=== PATIENT | male | born 1940 | race Caucasian/White ===

== ENCOUNTER 2016-07-22 11:30 | Inpatient (IN) ==
[2016-07-22] MEDS ORDERED: 0.9 % Sodium Chloride 1,000 ML IVC ONE (11:49)
[2016-07-22 12:09] LABS: Basophils # 0.1 K/mcL (0.0-0.2); Eosinophils # 0.2 K/mcL (0.0-0.6); Eosinophils % 2.8 %; Hematocrit 39.2 % (37.5-50.1); Hemoglobin 13.2 g/dL (12.9-16.9); Immature Granulocytes % 0.3 % (0-4); Lymphocytes # 2.7 K/mcL (0.6-4.6); Lymphocytes % 43.7 %; Mean Corpuscular HGB Conc 33.7 g/dL (31.6-35.5); Mean Corpuscular Hemoglobin 30.1 pg (28.0-33.3); Mean Corpuscular Volume 89.5 fL (83.0-100.0); Mean Platelet Volume 10.4 fL (9.4-12.4); Monocytes # 0.6 K/mcL (0.0-1.3); Neutrophils # 2.6 K/mcL (1.6-8.9); Platelet Count 168 K/mcL (140-400); Red Blood Count 4.38 M/mcL (4.19-5.50); Red Cell Distribution Width 12.8 % (11.5-14.5); Segmented Neutrophils % 42.2 %
[2016-07-22 12:14] LABS: Prothrombin Time 11.1 Seconds (9.4-12.1)
--- NOTE | 2016-07-22 12:14 | Emergency Department Note ---
START Narrative - START START: I examined this patient and my medical decision-making was reviewed with the PNEUMATIC TESTER/PA/Advanced Practice Nurse/Resident Physician. I agree with the documented findings, disposition and treatment plan as described except to the extent set forth below. Patient does have left-sided weakness arm and legs for the last 1 week and slurred speech which is minimal and this began yesterday. Denies any pain in the head or chest or abdomen or back. Does have some chronic neck pain but nothing new. Patient will be further evaluated for CVA. I did see the patient bedside and spoke with them 1214 I did review the patient's EKG showing normal sinus rhythm with rate of 63 and placed a T-wave inversion in lead aVL. 130
--- NOTE | 2016-07-22 13:00 | Emergency Department Note ---
Disposition Clinical Impression: Cerebrovascular accident Qualifiers: CVA mechanism: unspecified Qualified Code(s): I63.9 - Cerebral infarction, unspecified Disposition: Admitted As Inpatient Condition: Fair Time of Disposition: 13:05 Neuro HPI - General Chief Complaint: ED Neuro Symptoms/Deficit Stated Complaint: Left sideed weakness Time Seen by Provider: 07/22/16 11:35 Source: patient, family - History of Present Illness HPI Narrative: Mr. Lange is a 75 her old male who presents with one-week history of left- sided weakness. Patient states that he awoke this morning and attempted to get out of bed at which point he fell. He does not recall if he hit his head. He was able to right himself. Patient denies any dysphasia. He states that he is having difficulty talking due to having "dry mouth". He denies problems swallowing. Patient states he is unable to lift his left arm. Patient lives at home with his who works for the police force. No other complaints at this time. Onset of Symptoms Date: 07/15/16 - Related Data Home Medications: Home Medications Medication Instructions Recorded Confirmed ALPRAZolam [Xanax 1 MG Tablet] 0.5 - 1 mg PO HS 07/22/16 07/22/16 Duloxetine HCl [Cymbalta] 60 mg PO DAILY 07/22/16 07/22/16 Ergocalciferol (VITAMIN D2) 50,000 unit PO QWEEK 07/22/16 07/22/16 [Vitamin D2] HYDROcodone/Acet 5/325 mg [Bruno 1 tab PO Q6H PRN 07/22/16 07/22/16 5-325 mg] HydrOXYzine Pamoate [Vistaril] 50 mg PO Q6H PRN 07/22/16 07/22/16 Lisinopril [Zestril] 20 mg PO DAILY 07/22/16 07/22/16 Melatonin 5 mg PO HS PRN 07/22/16 07/22/16 Rabeprazole Sodium [Aciphex] 20 mg PO DAILY 07/22/16 07/22/16 cloNIDine HCl [Clonidine HCl] 0.2 mg PO TID 07/22/16 07/22/16 hydrALAZINE [HydrALAZINE] 25 mg PO Q8HR 05/24/17 05/24/17 Allergies/Adverse Reactions: Allergies Allergy/AdvReac Type Severity Reaction Status Date / Time amlodipine [From Norvasc] Allergy See Verified 04/20/16 07:44 Comments carvedilol [From Coreg] AdvReac Agitated Verified 02/14/15 08:26 gabapentin AdvReac Shakiness Verified 02/09/16 19:23 pregabalin [From Lyrica] AdvReac Confusion Verified 04/20/16 07:44 Sulfa (Sulfonamide AdvReac Rash Verified 03/19/16 08:37 Antibiotics) All systems ED: reviewed and negative except as stated. Constitutional: Reports: as per HPI Eyes: Reports: as per HPI ENT ED: Reports: as per HPI Cardiovascular: Reports: as per HPI Respiratory: Reports: as per HPI Gastrointestinal: Reports: as per HPI Genitourinary: Reports: as per HPI Musculoskeletal: Reports: as per HPI Integumentary: Reports: as per HPI Neurological: Reports: as per HPI Psychiatric: Reports: as per HPI Endocrine: Reports: as per HPI Hematological/Lymphatic: Reports: as per HPI Allergic/Immunologic: Reports: as per HPI Past Medical History - Past Medical History Medical history: Reports: arthritis, cancer, hypertension Psychiatric history: Reports: anxiety - Social History Smoking Status: Never smoker Smokeless Tobacco Status: No Alcohol use: Reports: occasionally Drug use: Reports: none Physical Exam - General Limitations: other (Mild dysphagia) General appearance: alert, in no apparent distress - Head Head exam: atraumatic, normocephalic, normal inspection - Eye Eye exam: Present: normal appearance, PERRL, EOMI - ENT ENT exam: normal exam, normal oropharynx, mucous membranes dry - Neck Neck exam: Present: normal inspection, full ROM - Chest Chest inspection: Present: normal inspection, symmetric chest wall rise. Absent : tenderness - Respiratory Respiratory exam: Present: normal lung sounds bilaterally. Absent: respiratory distress, wheezes, stridor - Cardiovascular Cardiovascular exam: Present: regular rate, normal rhythm, +S1, +S2. Absent: systolic murmur, diastolic murmur - Abdominal Exam Abdominal exam: Present: soft, Non-Tender - Extremities Exam Extremities exam: Present: normal inspection. Absent: pedal edema - Neurological Exam Neurological exam: Present: alert, oriented X3, CN II-XII intact, motor sensory deficit, other (Muscle strength left upper extremity 2/5, and left lower extremity 2/5. Right upper and lower extremities muscle strength 5/5. Pronator drift of left arm.). Absent: reflexes normal - Psychiatric Psychiatric exam: Present: normal affect, normal mood - Skin Skin exam: Present: warm, dry, intact Course Vital Signs Temperature 97.9 F 07/22/16 11:34 Pulse Rate 66 07/22/16 11:34 Respiratory Rate 18 07/22/16 11:34 Blood Pressure 164/75 07/22/16 11:34 O2 Sat by Pulse Oximetry 98 07/22/16 11:34 Temperature 97.6 F 07/22/16 14:57 Pulse Rate 65 07/22/16 14:57 Respiratory Rate 16 07/22/16 14:57 Blood Pressure 172/96 07/22/16 14:57 O2 Sat by Pulse Oximetry 99 07/22/16 14:57 Neuro Symptoms/Deficit - MDM Narrative Medical decision making narrative: Patient presents with left-sided weakness for the last 1 week. Given his symptoms, I am concerned for CVA. CT of the head is negative for acute infarct. There is age-appropriate cerebral atrophy with evidence of chronic periventricular small vessel ischemic disease. However, patient had a fall today due to weakness. He is unsafe to be discharged home due to weakness. He will need further workup for the etiology of this CVA. Needs PT OT evaluation. He did pass a swallowing eval. He needs stroke risk reduction. - Lab Data Result diagrams: 07/22/16 11:45 07/22/16 11:45 Lab Results 07/22/16 07/22/16 07/22/16 Range/Units 11:45 11:45 11:45 WBC 6.1 (4.3-11.1) K/mcL RBC 4.38 (4.19-5.50) M/mcL Hgb 13.2 (12.9-16.9) g/dL Hct 39.2 (37.5-50.1) % MCV 89.5 (83.0-100.0) fL MCH 30.1 (28.0-33.3) pg MCHC 33.7 (31.6-35.5) g/dL RDW 12.8 (11.5-14.5) % Plt Count 168 (140-400) K/mcL MPV 10.4 (9.4-12.4) fL Immature Gran % 0.3 (0-4) % Seg Neutrophils % 42.2 % Lymphocytes % 43.7 % Monocytes % 10.0 % Eosinophils % 2.8 % Basophils % 1.0 % Neutrophils # 2.6 (1.6-8.9) K/mcL Lymphocytes # 2.7 (0.6-4.6) K/mcL Monocytes # 0.6 (0.0-1.3) K/mcL Eosinophils # 0.2 (0.0-0.6) K/mcL Basophils # 0.1 (0.0-0.2) K/mcL PT 11.1 (9.4-12.1) Seconds INR 1.0 Sodium 142 (136-145) mEq/L Potassium 4.0 (3.5-4.5) mEq/L Chloride 108 (98-109) mEq/L Carbon Dioxide 27 (19-29) mEq/L BUN 17 (8-26) mg/dL Creatinine 1.57 H (0.72-1.25) mg/dL Est GFR ( Amer) 52 L (> 60) Est GFR (Non-Af Amer) 43 L (> 60) BUN/Creatinine Ratio 11 (6-26) Glucose 104 H (70-99) mg/dL Calculated Osmolality 296 (280-300) Calcium 9.0 (8.6-10.8) mg/dL Troponin I (0-0.03) ng/mL 07/22/16 Range/Units 11:45 WBC (4.3-11.1) K/mcL RBC (4.19-5.50) M/mcL Hgb (12.9-16.9) g/dL Hct (37.5-50.1) % MCV (83.0-100.0) fL MCH (28.0-33.3) pg MCHC (31.6-35.5) g/dL RDW (11.5-14.5) % Plt Count (140-400) K/mcL MPV (9.4-12.4) fL Immature Gran % (0-4) % Seg Neutrophils % % Lymphocytes % % Monocytes % % Eosinophils % % Basophils % % Neutrophils # (1.6-8.9) K/mcL Lymphocytes # (0.6-4.6) K/mcL Monocytes # (0.0-1.3) K/mcL Eosinophils # (0.0-0.6) K/mcL Basophils # (0.0-0.2) K/mcL PT (9.4-12.1) Seconds INR Sodium (136-145) mEq/L Potassium (3.5-4.5) mEq/L Chloride (98-109) mEq/L Carbon Dioxide (19-29) mEq/L BUN (8-26) mg/dL Creatinine (0.72-1.25) mg/dL Est GFR ( Amer) (> 60) Est GFR (Non-Af Amer) (> 60) BUN/Creatinine Ratio (6-26) Glucose (70-99) mg/dL Calculated Osmolality (280-300) Calcium (8.6-10.8) mg/dL Troponin I 0.02 (0-0.03) ng/mL - Radiology Data Radiology results reviewed: Yes I reviewed the patient's radiology results. Chest X-Ray 07/22/16 11:53 IMPRESSION: No acute cardiopulmonary process. D/ / James Rahman MD / James Rahman MD Interpreting Provider: James Rahman MD Head CT 07/22/16 11:57 IMPRESSION: No acute intracranial abnormality. There is age-appropriate cerebral atrophy with evidence of chronic periventricular small vessel ischemic disease. D/ / Matthew Wei MD / Matthew Wei MD Interpreting Provider: Matthew Wei MD Checklist - LKW: 3-4.5 hrs Add. Contraindications Patient/family understanding: The patient/family members have been counseled and understood the risk, benefit , and alternatives of treatment. S.B.Parul - Bacilio Situation: Demographics Background: Presenting Complaint Assessment: Vital Signs, Exam Concerns, Pertinant Lab Results S.B.[email or web address] Report Given to: Dr. Mary Ribera Repor Time: 13:05
[2016-07-22] MEDS ORDERED: Aspirin 81 MG TAB.CHEW PO ONE (13:20)
[2016-07-22] MEDS ORDERED: *HR* HYDROcodone/Acet 5/325 mg TABLET PO ONE (13:27)
--- NOTE | 2016-07-22 14:27 | Event Note ---
Date of Encounter: 07/22/16 Time of Encounter: 14:25 1. Acute CVA with left upper and lower extremity weakness and slurred speech is /dysarthria Order MRI of the brain, carotid ultrasound, echocardiogram Neurochecks, fall precautions Continue aspirin, permissive hypertension, neurology consult Check a lipid panel, start statin 2. Chronic kidney disease stage III, stable 3. Hypertension, stable 4. CAD, continue aspirin Time spent on this admission 40 minutes, admitted for observation H and P to be written by ALLIE Mcnally
[2016-07-22] MEDS ORDERED: Naloxone 0.4 MG/ML INJ IVP PRN (14:49)
[2016-07-22] MEDS ORDERED: Melatonin 3 MG TABLET PO PRN (15:09)
[2016-07-22] MEDS ORDERED: hydrOXYzine pamoate 25 MG CAPSULE PO PRN (15:09)
--- NOTE | 2016-07-22 15:26 | Internal Med History&Physical ---
<DaliPorter Cline - Last Filed: 07/22/16 16:23> Date of Encounter: 07/22/16 Time of Encounter: 14:30 Assessment and Plan (1) Acute CVA (cerebrovascular accident) Current visit: Yes Status: Acute Assess: Mr. Lange presents from the ED with chief complaint of worsening left-sided weakness over the past ten days. Patient reports that his speech became slightly slurred yesterday (07/21/16). Patient reports that this is a new condition and that he has never experienced weakness of extremities before. Plan: NIHSS protocol MRI of head/brain w/o contrast ordered Neurology consult ordered and placed Neuro assessment every 3 hours Dysphagia screening Assess for bleeding Supplemental O2 @ 2L with titration if SpO2 <92% Monitor patient's vital signs and SpO2 status OT consult CT consult Bed rest/falls precautions (2) Anxiety about health Current visit: Yes Status: Acute Assess: Patient presents with anxiety related to his declining health status. The patient states his health has declined over the past 1 1/2 years and became anxious and tearful during assessment. Plan: SW consult ordered for possible counseling PT consult ordered OT consult ordered (3) Chronic kidney disease, stage 3 Current visit: Yes Status: Chronic Assess: Patient presents with history of chronic kidney disease, stage III. Plan: Judicious use of IV fluids Monitor I&O (4) Hypertension Current visit: Yes Status: Chronic Assess: Patient presents with history of hypertension related to chronic kidney disease , stage III. Plan: Continue Lisinopril Continue Hydralazine Lipitor 40 mg daily ordered Qualifiers: Hypertension type: secondary to other renal disorders Qualified Code(s): I15.1 - Hypertension secondary to other renal disorders; N28.89 - Other specified disorders of kidney and ureter (5) CAD (coronary artery disease) Current visit: Yes Status: Chronic Assess: Patient presents with history of CAD Plan: Lipid panel ordered Lipitor 40 mg daily ordered Continue Lisinopril Continue Hydralazine Continue aspirin therapy 325 mg daily Qualifiers: Coronary Disease-Associated Artery/Lesion type: unspecified vessel or lesion type [place] vs. transplanted heart: [place] heart Associated angina: without angina Qualified Code(s): I25.10 - Atherosclerotic heart disease of [place] coronary artery without angina pectoris (6) DVT prophylaxis Current visit: Yes Status: Acute Assess: Patient to receive DVT prophylaxis based on his current complaint of left-sided weakness and possible CVA as well as bed rest status. Plan: Heparin 5,000 units SQ Q8 ordered Internal Medicine - H&P: HPI Chief complaint: Left-sided weakness/CVA Admitted From: Emergency Dept Plans for Post Hospital Care: Home History of present illness: Mr. Lange is a 75 year old male presents from the ED with chief complaint of worsening left-sided weakness over the past ten days. Patient reports that his speech became slightly slurred yesterday (07/21/16). Mr. Lange chose to come to the ED today after he reports that he fell while attempting to get out of bed due to the left-sided weakness. Patient was able to right himself slowly and rise to the bed. Patient has a history of arthritis, skin cancer, and hypertension. He also reports that he broke his neck approximately 15 years ago when he sustained a fall from a high location related to his work. 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 He denies any pain in the head, chest, or abdomen. He also denies any bleeding, dizziness, syncope, headaches, or changes in his vision. He reports a feeling of generalized weakness. The patient reports feelings of anxiety and depression related to his current health status which he states has declined over the past 1 1/2 years. Mr. Lange is to be admitted as observation status with NIHSS protocol, neurological assessments Q3HR, dysphagia screening, EV echocardiogram, an MRI of the head/brain, and heparin 5,000 units SQ Q8. Neurology consult ordered and confirmed. Falls precautions are ordered for this patient and patient is only to be out of bed with assistance. Bed rest ordered. Patient to be monitored closely for signs of neurological decline. Past Med Surg Social Fam HX - Past Medical History Source: patient Medical history: arthritis, cancer (Skin cancer with removal of three cancerous lesions), hypertension Psychiatric history: anxiety, depression - Past Surgical History Surgical History: orthopedic, other (Surgery for broken neck 15 years ago) - Social History Smoking Status: Never smoker Smokeless Tobacco Status: No Alcohol use: occasionally Drug use: none Occupational status: retired Current living situation: Home, With Family Activity Level: Independent ambulation Recent Out of Country Travel Within the Last 8 Weeks: No Exposure or Possible Exposure to Illness During Travel: No - Family History Mother Race: Family Member Ethnicity: Non- Living Status: Cause of : Renal failure Hx Family Genitourinary Disorders: Yes Father Race: Family Member Ethnicity: Non- Living Status: Cause of : Complications r/t EtOH abuse Hx Family GI Disorders: Yes Brother Race: Family Member Ethnicity: Non- Living Status: Cause of : Lung complications r/t tobacco abuse Hx Family Respiratory Disorders: Yes Sister Race: Family Member Ethnicity: Non- Living Status: Cause of : Unknown Internal Medicine - H&P: Meds ALPRAZolam [Xanax 1 MG Tablet] 0.5 - 1 mg PO HS 07/22/16 [History] Duloxetine HCl [Cymbalta] 60 mg PO DAILY 07/22/16 [History] Ergocalciferol (VITAMIN D2) [Vitamin D2] 50,000 unit PO QWEEK 07/22/16 [History] HYDROcodone/Acet 5/325 mg [[place] 5-325 mg] 1 tab PO Q6H PRN 07/22/16 [History] HydrOXYzine Pamoate [Vistaril] 50 mg PO Q6H PRN 07/22/16 [History] Lisinopril [Zestril] 20 mg PO DAILY 07/22/16 [History] Melatonin 5 mg PO HS PRN 07/22/16 [History] Rabeprazole Sodium [Aciphex] 20 mg PO DAILY 07/22/16 [History] cloNIDine HCl [Clonidine HCl] 0.2 mg PO TID 07/22/16 [History] hydrALAZINE [HydrALAZINE] 25 mg PO Q8HR 07/22/16 [History] Allergies amlodipine [From Norvasc] Allergy (Verified 04/20/16 07:44) See Comments swelling carvedilol [From Coreg] Adverse Reaction (Verified 02/14/15 08:26) Agitated gabapentin Adverse Reaction (Verified 02/09/16 19:23) Shakiness pregabalin [From Lyrica] Adverse Reaction (Verified 04/20/16 07:44) Confusion Sulfa (Sulfonamide Antibiotics) Adverse Reaction (Verified 03/19/16 08:37) Rash All Systems PM: A 10-system review of systems was performed and is negative for pertinent findings except as documented above in the HPI. - Constitutional Constitutional: as per HPI, falls, weakness (Generalized with worsening weakness of the left side over the past ten days) - EENT Eyes: no change in vision, no discharge, no pain, no photophobia Ears: no ear discharge, no ear pain, no tinnitus Nose, mouth and throat: no dysphagia, no nasal discharge, no neck pain, no sore throat - Breasts Breasts: as per HPI - Cardiovascular Cardiovascular ROS IM: no chest pain, no diaphoresis, no dyspnea, no lightheadedness, no palpitations, no syncope - Respiratory Respiratory: no cough, no dyspnea, no wheezing, no excessive phlegm production - Gastrointestinal Gastrointestinal: no abdominal pain, no diarrhea, no hematemesis, no hematochezia, no melena, no nausea, no vomiting - Genitourinary Genitourinary ROS male: as per HPI - Musculoskeletal Musculoskeletal ROS IM: as per HPI, arthralgias, back pain, muscle cramps, neck pain - Integumentary Integumentary IM: no rash, no unusual bruising - Neurological Neurological ROS: abnormal speech (Slurred speech which began yesterday ()), weakness (Left-sided) - Psychiatric Psychiatric: as per HPI, anxiety, depression - Endocrine Endocrine IM: as per HPI - Hematologic/Lymphatic Hematologic/Lymphatic: no easy bruising - Allergic/Immunologic Allergic/Immunologic: as per HPI - Constitutional Vitals: Temp Pulse Resp BP Pulse Ox 97.6 F 65 16 172/96 99 07/22/16 14:57 07/22/16 14:57 07/22/16 14:57 07/22/16 14:57 07/22/16 14:57 General appearance: Present: cooperative, mild distress, A&O X 3, obese, answers questions appropriately Exam: Patient became tearful related to changes in his health status over the past year and a half. - Head Head exam: Present: atraumatic, normocephalic - Eye Eye exam: Present: PERRL, conjuntiva pink, sclera anicteric Pupils: Present: PERRL - ENT ENT exam: Present: normal exam, normal external ear exam - Neck Neck exam general surgery: Present: supple, trachea midline. Absent: lymphadenopathy - Respiratory Respiratory exam: Present: CTAB. Absent: accessory muscle use, rales, rhonchi, wheezes - Cardiovascular Cardiovascular exam: Present: RRR, +S1, +S2. Absent: diastolic murmur, gallop, rubs, systolic murmur - GI/Abdominal GI/Abdominal exam: Present: normal bowel sounds, soft, no peritoneal signs. Absent: distended, tenderness - Rectal Rectal exam: Present: deferred - Additional comments: exam deferred. - Extremities Exam Extremities exam: Present: normal capillary refill, normal inspection, warm, radial pulses palpable and symetrical Additional comments: Upon initial neurological examination, patient has slightly diminished strength on the left-sided extremities. No pronator drift present. - Back Exam Back exam: Present: normal inspection - Neurological Exam Neurological exam: Present: CN II-XII intact, oriented X3, no focal deficits, speech deficit (Speech is slightly slurred during assessment and examination). Absent: pronater drift, facial droop - Psychiatric Psychiatric exam: Present: anxious (Patient became tearful during examination related to his declining health status), depressed - Skin Skin exam: Present: dry, intact Internal Med - H&P Results - Labs CBC & Chem 7: 07/22/16 11:45 07/22/16 11:45 - EKG Data EKG shows normal: sinus rhythm - EKG Data Prior EKG available for review: yes When compared to previous EKG: there is no significant change EKG comments: 07/22/16 15:53 EKG dated 02/09/16 shows sinus rhythm with non-specific ST & T-wave abnormality. EKG dated 07/22/16 shows sinus rhythm with first degree AV block and non- specific T-wave abnormality. - Diagnostic Studies Chest x-ray Additional comments: 1-View CXR of chest shows: Low lung volumes with persistent elevation of the left hemidiaphragm. Clear lungs. No findings for pleural effusion or pneumothorax. Normal mediastinal, hilar, and cardiac contours. Partial included changes of anterior cervical spine fusion without obvious complication. No acute fracture. OVERALL IMPRESSION: No acute cardiopulmonary process. CT scan - head Additional comments: CT of head without contrast dated 07/22/16 shows: BRAIN/VENTRICLES: Is no acute intracranial hemorrhage, mass effect, or midline shift. No abnormal extra-axial fluid collection. The harrison-white differentiation is maintained without evidence of acute infarct. There is no evidence of hydrocephalus. There is age-appropriate cerebral atrophy. Faint low density periventricular white matter changes are noted compatible with chronic small vessel ischemic disease. Minor basal ganglia calcifications incidentally noted. ORBITS: The visualized portion of the orbits demonstrate no acute abnormality. SINUSES: The visualized paranasal sinuses and mastoid air cells demonstrate no acute abnormality. SOFT TISSUES/SKULL: No acute abnormality of the visualized skull or soft tissues. OVERALL IMPRESSION: No acute intracranial abnormality. There is age- appropriate cerebral atrophy with evidence of chronic periventricular small vessel ischemic disease. <Yosvany Clifton H - Last Filed: 07/22/16 16:26> Date of Encounter: 07/22/16 Internal Medicine - H&P: HPI History of present illness: Mr. Lange is a 75 year old male All Systems PM: A 10-system review of systems was performed and is negative for pertinent findings except as documented above in the HPI. - Constitutional Vitals: Temp Pulse Resp BP Pulse Ox 97.6 F 65 16 172/96 99 07/22/16 14:57 07/22/16 14:57 07/22/16 14:57 07/22/16 14:57 07/22/16 14:57 Internal Med - H&P Results - Labs CBC & Chem 7: 07/22/16 11:45 07/22/16 11:45 - Attending Attestation 1. Acute CVA with left upper and lower extremity weakness and slurred speech is /dysarthria Order MRI of the brain, carotid ultrasound, echocardiogram Neurochecks, fall precautions Continue aspirin, permissive hypertension, neurology consult Check a lipid panel, start statin 2. Chronic kidney disease stage III, stable 3. Hypertension, stable 4. CAD, continue aspirin Time spent on this admission 40 minutes, admitted for observation I examined this patient and my medical decision-making was reviewed with the TECHNICAL INSTRUCTOR COURSE DEVELOPER/PA/Advanced Practice Nurse/Resident Physician. I agree with the documented findings, disposition and treatment plan as described except to the extent set forth below.
[2016-07-22] MEDS: hydrALAZINE 25 MG TABLET PO SCH (16:03)
[2016-07-22] MEDS: Cholecalciferol (D-3) 1,000 UNIT TABLET PO SCH (16:03)
[2016-07-22] MEDS: cloNIDine HCl 0.1 MG TABLET PO SCH (20:21)
[2016-07-22] MEDS: ALPRAZolam 1 MG TABLET PO SCH (20:21)
[2016-07-22] MEDS: *HR* HYDROcodone/Acet 5/325 mg TABLET PO PRN (20:22)
--- NOTE | 2016-07-22 20:56 | Neurology - Consult Note ---
Date of Encounter: 07/22/16 Time of Encounter: 20:52 Assessment and Plan (1) Acute CVA (cerebrovascular accident) Current Visit: Yes Status: Acute This gentleman has indeed experienced acute right hemispheric cerebral infarcts. The bulk of the injury however sustained in the right centrum semiovale ovale. There are several satellite micro-infarcts surrounding a large lacunar infarction. There is also a tiny lacunar infarction in the left centrum semiovale. Because of the bihemispheric involvement certainly embolic phenomenon is always a question. The MRI also reveals chronic periventricular white matter changes as well as other deep white matter changes consistent with previous lacunar events. I am encouraged however that he does maintain some functional strength of the left upper and left lower extremity. I therefore hopeful that over time with intense rehabilitation therapy he may be able to regain a good bit of strength on the left side. I also discussed the importance of getting immediate attention when some acute change in strength, sensation or other senses occurs. I recommend discontinuing aspirin and starting him on Plavix 75 mg daily. Also check MRA scan of the the neck, as well as echocardiogram. Further recommendations will be made pending the outcome of these tests. Stroke protocol orders should be implemented. Also strict risk factor management is paramount. Continue on with the statins and antihypertensives. The documentation in the history of HPI and plan were at least partially created by [employer] voice recognition technology by Dr. Bryson. Errors in grammar, wording or other phrases may exist. If errors are found after the documentation signed, they will be addressed individually in the addendum section of this document when appropriate. History of Present Illness HPI: Mr. Lange is a 75 year old male who was seen for neurologic consultation secondary to progressive weakness of the left upper and lower extremity along with slurred speech. Apparently the weakness has been progressively worsening over the last 10 days. However his stated that the actual onset of left face and arm and leg difficulty was back on June 27. Apparently he was sitting in a chair when this occurred any simply noticed that he could not raise his left arm properly. He denied any other symptoms associated such as chest pain headache shortness of breath or diplopia. MRI scan of the brain reveals an acute right sided infarct in the centrum semiovale ovale. There seemed to be a cluster of acute microinfarcts as well. There is also a very small lacunar infarct in the left centrum semiovale. This gentleman does have a history of hypertension and hyperlipidemia. However his blood pressure was not particularly elevated at the time of admission. His creatinine is slightly elevated at 1.57 BUNs 17 electrolyte panel was all normal glucose was slightly elevated at 104. CBC with differential was completely normal. Troponins were normal. Coag panel was normal. He denies any history of atrial fibrillation. Past Med Surg Social Fam HX - Past Medical History Medical history: arthritis, cancer, hypertension Psychiatric history: anxiety - Past Surgical History Surgical History: orthopedic, other (Surgery for broken neck 15 years ago) - Social History Smoking Status: Never smoker Smokeless Tobacco Status: No Alcohol use: occasionally Drug use: none - Family History Mother Race: Family Member Ethnicity: Non- Living Status: Cause of : Renal failure Hx Family Genitourinary Disorders: Yes Father Race: Family Member Ethnicity: Non- Living Status: Cause of : Complications r/t EtOH abuse Hx Family GI Disorders: Yes Brother Race: Family Member Ethnicity: Non- Living Status: Cause of : Lung complications r/t tobacco abuse Hx Family Respiratory Disorders: Yes Sister Race: Family Member Ethnicity: Non- Living Status: Cause of : Unknown Medications and Allergies ALPRAZolam [Xanax 1 MG Tablet] 0.5 - 1 mg PO HS 07/22/16 [History] Duloxetine HCl [Cymbalta] 60 mg PO DAILY 07/22/16 [History] Ergocalciferol (VITAMIN D2) [Vitamin D2] 50,000 unit PO QWEEK 07/22/16 [History] HYDROcodone/Acet 5/325 mg [[place] 5-325 mg] 1 tab PO Q6H PRN 07/22/16 [History] HydrOXYzine Pamoate [Vistaril] 50 mg PO Q6H PRN 07/22/16 [History] Lisinopril [Zestril] 20 mg PO DAILY 07/22/16 [History] Melatonin 5 mg PO HS PRN 07/22/16 [History] Rabeprazole Sodium [Aciphex] 20 mg PO DAILY 07/22/16 [History] cloNIDine HCl [Clonidine HCl] 0.2 mg PO TID 07/22/16 [History] hydrALAZINE [HydrALAZINE] 25 mg PO Q8HR 07/22/16 [History] Allergies amlodipine [From Norvasc] Allergy (Verified 04/20/16 07:44) See Comments swelling carvedilol [From Coreg] Adverse Reaction (Verified 02/14/15 08:26) Agitated gabapentin Adverse Reaction (Verified 02/09/16 19:23) Shakiness pregabalin [From Lyrica] Adverse Reaction (Verified 04/20/16 07:44) Confusion Sulfa (Sulfonamide Antibiotics) Adverse Reaction (Verified 03/19/16 08:37) Rash All Systems: A 10-system review of systems was performed and is negative for pertinent findings except as documented above in the HPI. Review of Systems: Review of systems is consistent with a history of present illness and otherwise negative. Physical Examination - Vital Signs Vital Signs: Initial Vital Signs Temp Pulse Resp BP Pulse Ox 97.9 F 66 18 164/75 98 07/22/16 11:34 07/22/16 11:34 07/22/16 11:34 07/22/16 11:34 07/22/16 11:34 - Constitutional General appearance: comfortable - Neurologic Motor examination - right side: 5/5: deltoids, biceps, triceps, wrist flexion, wrist extension, weigh box tender, hip flexors, tibialis Anterior, quadriceps, toe extension (EHL), plantarflexion Motor examination - left side: 2/5: hip flexors (2+ to 3/5), 3/5: deltoids, biceps, triceps, weigh box tender, quadriceps, tibialis Anterior, toe extension (EHL), plantarflexion Detailed sensory examination: other (Left hemihypoesthesia is present) Reflex and gait examination: other (Deep tendon reflexes are diminished in both upper and lower extremities.) Mental Status Examination: awake, alert, oriented to person, oriented to place, oriented to time, follows commands appropriately, answers questions appropriately, no agnosia, no aphasia, no aproxia Cranial nerve examination: PERRL, EOMI, visual alvarado intact, corneal reflexes brisk symmetrically, mastication intact, no dysarthria, hearing is intact symmetrically Cranial Nerve Exam: facial hypesthesia: Left, flattening of masolabic/folds: Left Results - Laboratory Findings CBC and BMP: 07/22/16 11:45 07/22/16 11:45 Abnormal lab findings: Abnormal lab results Creatinine 1.57 mg/dL (0.72-1.25) H 07/22/16 11:45 Est GFR ( Amer) 52 (> 60) L 07/22/16 11:45 Est GFR (Non-Af Amer) 43 (> 60) L 07/22/16 11:45 Glucose 104 mg/dL (70-99) H 07/22/16 11:45 POC Glucose 90 (58-89) H 07/22/16 15:06 Consult Discharge Plan - Plan Referrals: Dio Wilkerson MD [Primary Care Provider] -
[2016-07-22] MEDS: *HR* Heparin 5,000 UNIT/ML VIAL SQ SCH (22:33)
[2016-07-23] MEDS: hydrALAZINE 25 MG TABLET PO SCH ×4 (00:09→23:18)
[2016-07-23] MEDS: *HR* HYDROcodone/Acet 5/325 mg TABLET PO PRN ×3 (04:28→19:58)
[2016-07-23 04:40] LABS: Basophils % 0.7 %; Eosinophils # 0.2 K/mcL (0.0-0.6); Eosinophils % 2.9 %; Hematocrit 38.6 % (37.5-50.1); Hemoglobin 12.7 g/dL (12.9-16.9); Immature Granulocytes % 0.2 % (0-4); Lymphocytes # 2.8 K/mcL (0.6-4.6); Lymphocytes % 47.4 %; Mean Corpuscular HGB Conc 32.9 g/dL (31.6-35.5); Mean Corpuscular Hemoglobin 29.3 pg (28.0-33.3); Mean Corpuscular Volume 89.1 fL (83.0-100.0); Mean Platelet Volume 10.8 fL (9.4-12.4); Monocytes # 0.4 K/mcL (0.0-1.3); Monocytes % 7.5 %; Neutrophils # 2.4 K/mcL (1.6-8.9); Platelet Count 153 K/mcL (140-400); Red Blood Count 4.33 M/mcL (4.19-5.50); Red Cell Distribution Width 12.6 % (11.5-14.5); Segmented Neutrophils % 41.3 %
[2016-07-23] MEDS: *HR* Heparin 5,000 UNIT/ML VIAL SQ SCH ×3 (05:04→21:14)
[2016-07-23 05:38] LABS: Albumin 3.5 g/dL (3.5-5.0); Albumin/Globulin Ratio 1.1 (1.1-2.2); Bilirubin,Total 0.5 mg/dL (0.2-1.2); Calcium 8.9 mg/dL (8.6-10.8); Chol/HDL Ratio 5.7 (0-4.9); Globulin 3.2 g/dL (2.4-3.5); Magnesium 1.8 mg/dL (1.6-2.6); Potassium 3.9 mEq/L (3.5-4.5); Total Protein 6.7 g/dL (6.0-8.3)
--- NOTE | 2016-07-23 07:34 | Neurology Progress Note ---
Date of Encounter: 07/23/16 Time of Encounter: 07:32 Assessment and Plan (1) Acute CVA (cerebrovascular accident) Current Visit: Yes Status: Acute Patient appears to be clinically improving. The MRA scan of the brain was negative. Echocardiogram is pending. Patient continues to reflect upon an incident that occurred about a year ago when he was exerting himself excessively , and he states that he is not felt quite back to baseline over since then. Maintain Plavix. If the echocardiogram is negative I might recommend considering a JB. PT and OT are going to be very important in maximizing his recovery. Maintain statins and better blood pressure control. I will reevaluate him at your request. The documentation in the history of HPI and plan were at least partially created by [employer] recognition technology by Dr. Bryson. Errors in grammar, wording or other phrases may exist. If errors are found after the documentation signed, they will be addressed individually in the addendum section of this document when appropriate. Subjective Interval history: The chart was reviewed, the patient was seen and examined. He had an uneventful night. He feels in fact that is improving strength of the left upper and left lower extremities. MRI scan of the neck was negative. Echocardiogram is pending. Blood pressure mildly elevated however vital signs are otherwise stable. Denies headache denies diplopia. Objective - Constitutional Vitals: Temp Pulse Resp BP Pulse Ox 97.8 F 66 18 158/76 95 07/23/16 04:19 07/23/16 04:19 07/23/16 04:19 07/23/16 04:19 07/23/16 04:19 - Neurological Exam Motor examination - right side: 5/5: deltoids, biceps, triceps, wrist flexion, wrist extension, php website developer, hip flexors, tibialis Anterior, quadriceps, toe extension (EHL), plantarflexion Motor examination - left side: 3/5: hip flexors, php website developer, quadriceps, tibialis Anterior, toe extension (EHL), plantarflexion, 4/5: deltoids, biceps, triceps Sensation intact: Present: other (Left hemihypoesthesia is present) Reflex and gait examination: other (Deep tendon reflexes are diminished in both upper and lower extremities.) Mental Status Examination: Present: awake, alert, oriented to person, oriented to place, oriented to time, follows commands appropriately, answers questions appropriately, no agnosia, no aphasia, no aproxia Cranial nerve examination: Present: PERRL, EOMI, visual alvarado intact, corneal reflexes brisk symmetrically, mastication intact, no dysarthria, hearing is intact symmetrically Cranial Nerve Exam: facial hypesthesia: Left, flattening of masolabic/folds: Left Results - Laboratory Findings CBC and BMP: 07/23/16 03:31 07/23/16 03:31 Abnormal lab findings: Abnormal lab results Hgb 12.7 g/dL (12.9-16.9) L 07/23/16 03:31 Creatinine 1.53 mg/dL (0.72-1.25) H 07/23/16 03:31 Est GFR ( Amer) 54 (> 60) L 07/23/16 03:31 Est GFR (Non-Af Amer) 44 (> 60) L 07/23/16 03:31 Glucose 106 mg/dL (70-99) H 07/23/16 03:31 POC Glucose 90 (58-89) H 07/22/16 15:06 Triglycerides 249 mg/dL (< 150) H 07/23/16 03:31 LDL Cholesterol, Calc 110 mg/dL (0-99) H 07/23/16 03:31 VLDL Cholesterol, Calc 50 mg/dL (< 31) H 07/23/16 03:31 HDL Cholesterol 34 mg/dL (40-59) L 07/23/16 03:31 Cholesterol/HDL Ratio 5.7 (0-4.9) H 07/23/16 03:31 Consult Discharge Plan - Plan Referrals: Dio Wilkerson MD [Primary Care Provider] -
[2016-07-23] MEDS: Lisinopril 20 MG TABLET PO SCH (07:37)
[2016-07-23] MEDS: Cholecalciferol (D-3) 1,000 UNIT TABLET PO SCH (07:37)
[2016-07-23] MEDS: cloNIDine HCl 0.1 MG TABLET PO SCH ×3 (07:38→21:13)
[2016-07-23] MEDS ORDERED: Aspirin Enteric Coated 325 MG Tablet PO SCH (09:00)
--- NOTE | 2016-07-23 10:57 | Electrocardiograph Report ---
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
[2016-07-23] MEDS ORDERED: *HR* Labetalol 20 MG/4 ML SYRINGE IVP PRN (11:42)
--- NOTE | 2016-07-23 13:43 | Internal Med Progress Note ---
Date of Encounter: 07/23/16 Time of Encounter: 12:15 - Assessment and plan (1) Acute CVA (cerebrovascular accident) Current Visit: Yes Status: Acute Assessment and plan: Patient with multiple acute right sided hemispheric cerebral infarcts with satellite microinfarcts. There is also a lacunar left centrum semiovale infarct. Possible embolic stroke. Echocardiogram done today. We will follow results. MRA of the neck did not show any significant abnormalities. Patient has been placed on Plavix. Also has been started on Lipitor. Continue physical therapy. Neurology following. Recommend JB, if TTE is negative for any clot. Telemetry has not shown any abnormal rhythms so far. High risk for complications due to evolving stroke (2) Hypertension Current Visit: Yes Status: Chronic Assessment and plan: Accelerated hypertension with severely elevated blood pressure likely due to acute stroke. We will start patient on intravenous medications to control blood pressure to keep systolic less than 200. We will allow for permissive hypertension due to evolving stroke. Patient has been restarted on his usual antihypertensives. Qualifiers: Hypertension type: secondary to other renal disorders Qualified Code(s): I15.1 - Hypertension secondary to other renal disorders; N28.89 - Other specified disorders of kidney and ureter (3) Chronic kidney disease, stage 3 Current Visit: Yes Status: Chronic Assessment and plan: Renal function remains stable at this time (4) CAD (coronary artery disease) Current Visit: Yes Status: Chronic Assessment and plan: Continue Plavix and statin Qualifiers: Coronary Disease-Associated Artery/Lesion type: unspecified vessel or lesion type [place] vs. transplanted heart: [place] heart Associated angina: without angina Qualified Code(s): I25.10 - Atherosclerotic heart disease of [place] coronary artery without angina pectoris - Subjective Interval history: Patient is feeling better compared to yesterday. Still has weakness on the left upper and lower extremity although this is improving. Denies any headaches. No new complaints at this time. No blurred vision. No chest pain. - Constitutional Vitals: Temp Pulse Resp BP Pulse Ox 97.6 F 93 18 185/80 92 07/23/16 11:21 07/23/16 11:21 07/23/16 11:21 07/23/16 13:37 07/23/16 11:21 General appearance: Present: cooperative, mild distress, A&O X 3, obese, answers questions appropriately - Respiratory Respiratory exam: Present: CTAB. Absent: accessory muscle use, rales, rhonchi, wheezes - Cardiovascular Cardiovascular exam: Present: RRR, +S1, +S2. Absent: diastolic murmur, gallop, rubs, systolic murmur - GI/Abdominal GI/Abdominal exam: Present: normal bowel sounds, soft, no peritoneal signs. Absent: distended, tenderness - Extremities Exam Extremities exam: Present: warm, radial pulses palpable and symetrical. Absent : calf tenderness, cyanotic, pedal edema - Neurological Exam Neurological exam: Present: alert, CN II-XII intact, oriented X3, facial droop ( There is slight left-sided facial droop with flattening of the nasolabial folds) . Absent: speech deficit Additional comments: Normal strength and reflexes on the right side. Strength 3/5 in the left lower extremity and 4 /5 in the left upper extremity - Skin Skin exam: Present: dry, intact Internal Medicine: Result - Labs CBC & Chem 7: 07/23/16 03:31 07/23/16 03:31 Labs: Short CBC 07/23/16 Range/Units 03:31 WBC 5.9 (4.3-11.1) K/mcL Hgb 12.7 L (12.9-16.9) g/dL Hct 38.6 (37.5-50.1) % Plt Count 153 (140-400) K/mcL Neutrophils # 2.4 (1.6-8.9) K/mcL BMP 07/23/16 03:31 Sodium 141 Potassium 3.9 Chloride 107 Carbon Dioxide 24 BUN 17 Creatinine 1.53 H Glucose 106 H Calcium 8.9 Liver Function 07/23/16 Range/Units 03:31 Total Bilirubin 0.5 (0.2-1.2) mg/dL AST 24 (5-34) Units/L ALT 18 (0-55) Units/L Alkaline Phosphatase 51 (38-126) Units/L Albumin 3.5 (3.5-5.0) g/dL - ABG Interpretation ABG results: PT/INR, D-dimer PT 11.1 Seconds (9.4-12.1) 07/22/16 11:45 D-Dimer 415 ng/mLFEU (0-500) 07/22/16 16:09 - Impressions Impressions Brain MRI 05/24/17 15:03 IMPRESSION: Acute microinfarcts within the right frontoparietal lobe and left frontal lobe. The findings were sent to the Radiology Results [facility] at 8:17 pm on 07/22/2016to be communicated to a licensed caregiver. D/ / Olivier More MD / Olivier More MD Interpreting Provider: Olivier More MD Neck MRA 07/22/16 21:06 IMPRESSION: Motion degraded noncontrast exam. No obvious flow limiting stenosis or branch occlusion identified within the neck. D/ / Olivier More MD / Olivier More MD Interpreting Provider: Olivier More MD Consult Discharge Plan - Plan Referrals: Dio Wilkerson MD [Primary Care Provider] - (SENT WEB REQUEST ON 07-23-16 @ [id number] ) - Attending Attestation This document has been at least partially created by [employer] recognition technology by Dr. Day. Errors in grammar, wording or other phrases may exist. If errors are found after the documentation is signed, they will be addressed individually in the addendum section of this document when appropriate.
[2016-07-23] MEDS: ALPRAZolam 1 MG TABLET PO SCH (21:13)
[2016-07-24 04:50] LABS: Hemoglobin A1C 5.9 %
[2016-07-24] MEDS: *HR* Heparin 5,000 UNIT/ML VIAL SQ SCH ×3 (05:20→21:59)
[2016-07-24] MEDS: Cholecalciferol (D-3) 1,000 UNIT TABLET PO SCH (08:36)
[2016-07-24] MEDS: hydrALAZINE 25 MG TABLET PO SCH ×3 (08:36→16:01)
[2016-07-24] MEDS: cloNIDine HCl 0.1 MG TABLET PO SCH ×3 (08:36→21:59)
[2016-07-24] MEDS: Lisinopril 20 MG TABLET PO SCH (08:36)
[2016-07-24] MEDS ORDERED: 0.9 % Sodium Chloride 500 ML IVC ONE (09:01)
[2016-07-24] MEDS ORDERED: Tetracaine/Benzocaine/Butamben 200MG/SPRAY (100SPY/BOT) MM ONE (09:01)
[2016-07-24] MEDS: *HR* Midazolam HCl 5 MG/5 ML VIAL IVP PRN ×2 (09:55→10:00)
[2016-07-24] MEDS: *HR* FentaNYL (PF) 100 MCG/2 ML VIAL IVP PRN ×2 (09:55→10:00)
--- NOTE | 2016-07-24 14:54 | Internal Med Progress Note ---
Date of Encounter: 07/24/16 Time of Encounter: 14:30 - Assessment and plan (1) Acute CVA (cerebrovascular accident) Current Visit: Yes Status: Acute Assessment and plan: JB and TTE did not show any blood clots. No abnormal rhythms. Patient has normal ejection fraction. Continue aspirin and statin. Awaiting physical therapy evaluation to determine the plan of care at the time of discharge. Moderate risk for complications. (2) Hypertension Current Visit: Yes Status: Chronic Assessment and plan: Improved blood pressure. Blood pressure remains elevated. Increase hydralazine to 50 mg by mouth daily. Patient is allergic to amlodipine and carvedilol. Qualifiers: Hypertension type: secondary to other renal disorders Qualified Code(s): I15.1 - Hypertension secondary to other renal disorders; N28.89 - Other specified disorders of kidney and ureter (3) Chronic kidney disease, stage 3 Current Visit: Yes Status: Chronic Assessment and plan: Chronic and stable (4) CAD (coronary artery disease) Current Visit: Yes Status: Chronic Assessment and plan: On aspirin, statin and lisinopril. Qualifiers: Coronary Disease-Associated Artery/Lesion type: unspecified vessel or lesion type [place] vs. transplanted heart: [place] heart Associated angina: without angina Qualified Code(s): I25.10 - Atherosclerotic heart disease of [place] coronary artery without angina pectoris - Subjective Interval history: Is doing much better today. Underwent JB earlier today. Tolerated procedure well. Recovering more strength in his left upper and lower extremities. No complaints at this time. - Constitutional Vitals: Temp Pulse Resp BP Pulse Ox 97.8 F 64 18 151/73 95 07/24/16 11:21 07/24/16 11:21 07/24/16 11:21 07/24/16 11:21 07/24/16 11:21 General appearance: Present: cooperative, A&O X 3, no acute distress, obese, answers questions appropriately - Neck Neck exam general surgery: Present: supple, trachea midline. Absent: lymphadenopathy - GI/Abdominal GI/Abdominal exam: Present: normal bowel sounds, soft, no peritoneal signs. Absent: distended, tenderness - Extremities Exam Extremities exam: Present: warm, radial pulses palpable and symetrical. Absent : calf tenderness, cyanotic, pedal edema - Neurological Exam Neurological exam: Present: CN II-XII intact, oriented X3. Absent: facial droop , speech deficit Additional comments: Improving strength in left upper and lower extremity. Strength 4 over 5 in left upper extremity and 3+ left lower extremity. - Skin Skin exam: Present: dry, intact Internal Medicine: Result - Labs CBC & Chem 7: 07/23/16 03:31 07/23/16 03:31 - ABG Interpretation ABG results: PT/INR, D-dimer PT 11.1 Seconds (9.4-12.1) 07/22/16 11:45 D-Dimer 415 ng/mLFEU (0-500) 07/22/16 16:09 Consult Discharge Plan - Plan Referrals: Dio Wilkerson MD [Primary Care Provider] - 07/30/16 1:20 pm () - Attending Attestation This document has been at least partially created by [employer] recognition technology by Dr. Day. Errors in grammar, wording or other phrases may exist. If errors are found after the documentation is signed, they will be addressed individually in the addendum section of this document when appropriate.
[2016-07-24] MEDS: ALPRAZolam 1 MG TABLET PO SCH (21:58)
[2016-07-24] MEDS: *HR* HYDROcodone/Acet 5/325 mg TABLET PO PRN (22:05)
[2016-07-25] MEDS: hydrALAZINE 25 MG TABLET PO SCH ×2 (00:11→08:04)
[2016-07-25] MEDS: *HR* Heparin 5,000 UNIT/ML VIAL SQ SCH (06:10)
[2016-07-25] MEDS: Lisinopril 20 MG TABLET PO SCH (08:03)
[2016-07-25] MEDS: Cholecalciferol (D-3) 1,000 UNIT TABLET PO SCH (08:04)
[2016-07-25] MEDS: cloNIDine HCl 0.1 MG TABLET PO SCH (08:04)
--- NOTE | 2016-07-25 10:49 | Discharge Summary ---
Date of Encounter: 07/25/16 Time of Encounter: 10:15 - Discharge Diagnosis (1) Acute CVA (cerebrovascular accident) Priority: Primary Status: Acute (2) Hypertension Priority: Secondary Status: Chronic Qualifiers: Hypertension type: secondary to other renal disorders Qualified Code(s): I15.1 - Hypertension secondary to other renal disorders; N28.89 - Other specified disorders of kidney and ureter (3) Chronic kidney disease, stage 3 Priority: Secondary Status: Chronic (4) CAD (coronary artery disease) Priority: Secondary Status: Chronic Qualifiers: Coronary Disease-Associated Artery/Lesion type: unspecified vessel or lesion type [place] vs. transplanted heart: [place] heart Associated angina: without angina Qualified Code(s): I25.10 - Atherosclerotic heart disease of [place] coronary artery without angina pectoris (5) Prediabetes Priority: Secondary Status: Chronic - Discharge Medications Prescriptions: HYDROcodone/Acet 5/325 mg [[place] 5-325 mg] 1 tab PO Q6H PRN #20 tablet PRN Reason: Pain hydrOXYzine pamoate [HydrOXYzine Pamoate] 50 mg PO TID #30 cap Home Medications: ALPRAZolam [Xanax 1 MG Tablet] 0.5 - 1 mg PO HS 07/22/16 [History] Ergocalciferol (VITAMIN D2) [Vitamin D2] 50,000 unit PO QWEEK 07/22/16 [History] Lisinopril [Zestril] 20 mg PO DAILY 07/22/16 [History] Melatonin 5 mg PO HS PRN 07/22/16 [History] Rabeprazole Sodium [Aciphex] 20 mg PO DAILY 07/22/16 [History] cloNIDine HCl [Clonidine HCl] 0.2 mg PO TID 07/22/16 [History] Atorvastatin [Lipitor] 40 mg PO HS tablet 07/25/16 [Rx] Clopidogrel [Plavix] 75 mg PO DAILY #0 tablet 07/25/16 [Rx] HYDROcodone/Acet 5/325 mg [[place] 5-325 mg] 1 tab PO Q6H PRN #20 tablet 07/25/16 [Rx] hydrALAZINE [HydrALAZINE] 50 mg PO Q8HR tablet 07/25/16 [Rx] hydrOXYzine pamoate [HydrOXYzine Pamoate] 50 mg PO TID #30 cap 07/25/16 [Rx] Allergies/Adverse Reactions: Allergies amlodipine [From Norvasc] Allergy (Verified 04/20/16 07:44) See Comments swelling carvedilol [From Coreg] Adverse Reaction (Verified 02/14/15 08:26) Agitated gabapentin Adverse Reaction (Verified 02/09/16 19:23) Shakiness pregabalin [From Lyrica] Adverse Reaction (Verified 04/20/16 07:44) Confusion Sulfa (Sulfonamide Antibiotics) Adverse Reaction (Verified 03/19/16 08:37) Rash Procedures/tests Complete & Pending: Procedures Performed prior 72 hours Category Date Time Status MR angio neck wo con [MR] Routine MRI 07/22/16 21:06 Completed MR head/brain wo con [MR] Routine MRI 07/22/16 15:03 Completed EV JB transesophageal echo Routine Y 07/24/16 07:28 Completed EV echocardiogram Routine Y 07/23/16 07:00 Completed Date of admission: 07/22/16 14:49 Primary care physician: Dio Wilkerson MD Consults: 07/22/16 14:55 Consult to Emanations Analysis Technician [CONS] Routine Reason for SW Consult: Patient is experiencing severe anxiety regarding his health status and may be in need of appropriate counseling 07/22/16 15:04 Consult to Neurology [CONS] Routine Consulting Provider: Neu[facility] Reason for Consult: Patient has been experiencing worsening left-sided weakness in arm and leg over the past ten days Call Completed: Yes - Patient Status Disposition: Transfer SNF Condition: Good Functional capacity at discharge: uses cane/walker Overall status at discharge: patient is progressing back to baseline - Discharge Instructions Instructions: Ischemic Stroke (DC), Chronic Hypertension (DC) Follow Up With: Dio Wilkerson MD [Primary Care Provider] - 07/30/16 1:20 pm () - Diet and Activity Activity: as per physical therapy Diet: diabetic diet, low fat, low cholesterol, low salt diet Hospital course: Mr. Lange is a 75 year old male patient with a history of essential hypertension, coronary artery disease, chronic kidney disease stage III, was admitted here with acute stroke after presenting with left-sided upper and lower extremity weakness. He was not a candidate for planned type thrombolic or due to his presentation greater than 6 hours after onset of symptoms. He was evaluated by neurology and recommended workup for stroke. Patient underwent MRI of the brain which showed acute microinfarcts within the right frontal parietal and left frontal lobe. Given these findings, there was concern for acute embolic stroke. Patient underwent transthoracic and then transesophageal echocardiogram did not show any atrial thrombus. Patient had a normal ejection fraction of 60-65%. Patient was placed on Plavix and statin per neurology recommendations. He also underwent a neck MRA which did not show any flow-limiting stenosis or branch occlusion. The patient was evaluated by physical therapy and recommended placement to inpatient rehabilitation. Patient has been receiving physical therapy during his stay here with improvement in his strength but is still Significantly weak in his left upper and lower extremities. He will be discharged to rehabilitation once he has everything arranged. Clinically he is stable for discharge at this time. - Time Spent with Patient Total time spent providing and/or coordinating discharge services: Greater than 30 minutes (45 min) - Constitutional Vitals: Temp Pulse Resp BP Pulse Ox 98.1 F 63 14 166/80 94 07/25/16 07:43 07/25/16 08:00 07/25/16 08:00 07/25/16 07:43 07/25/16 07:43 General appearance: Present: cooperative, A&O X 3, no acute distress, obese, answers questions appropriately - Respiratory Respiratory exam: Present: CTAB. Absent: accessory muscle use, rales, rhonchi, wheezes - Cardiovascular Cardiovascular exam: Present: RRR, +S1, +S2. Absent: diastolic murmur, gallop, rubs, systolic murmur - GI/Abdominal GI/Abdominal exam: Present: normal bowel sounds, soft, no peritoneal signs. Absent: distended, tenderness - Neurological Exam Neurological exam: Present: alert, oriented X3, no focal deficits. Absent: facial droop, speech deficit - Skin Skin exam: Present: dry, intact - Attending Attestation This document has been at least partially created by [employer] recognition technology by Dr. Day. Errors in grammar, wording or other phrases may exist. If errors are found after the documentation is signed, they will be addressed individually in the addendum section of this document when appropriate.
--- NOTE | 2016-07-25 10:58 | Physician Discharge Referral ---
ExtendedCare Referral Info Provider in Charge after Transfer: PCP Institutional Level of Care: Skilled - Diagnosis (1) Acute CVA (cerebrovascular accident) Priority: Primary Status: Acute (2) Hypertension Priority: Secondary Status: Chronic (3) Chronic kidney disease, stage 3 Priority: Secondary Status: Chronic (4) CAD (coronary artery disease) Priority: Secondary Status: Chronic (5) Prediabetes Priority: Secondary Status: Chronic Prognosis: Good Aware of Diagnosis: Patient Aware of Prognosis: Patient - Transfer Medications Prescriptions: HYDROcodone/Acet 5/325 mg [[place] 5-325 mg] 1 tab PO Q6H PRN #20 tablet PRN Reason: Pain hydrOXYzine pamoate [HydrOXYzine Pamoate] 50 mg PO TID #30 cap Home Medications: ALPRAZolam [Xanax 1 MG Tablet] 0.5 - 1 mg PO HS 07/22/16 [History] Ergocalciferol (VITAMIN D2) [Vitamin D2] 50,000 unit PO QWEEK 07/22/16 [History] Lisinopril [Zestril] 20 mg PO DAILY 07/22/16 [History] Melatonin 5 mg PO HS PRN 07/22/16 [History] Rabeprazole Sodium [Aciphex] 20 mg PO DAILY 07/22/16 [History] cloNIDine HCl [Clonidine HCl] 0.2 mg PO TID 07/22/16 [History] Atorvastatin [Lipitor] 40 mg PO HS tablet 07/25/16 [Rx] Clopidogrel [Plavix] 75 mg PO DAILY #0 tablet 07/25/16 [Rx] HYDROcodone/Acet 5/325 mg [[place] 5-325 mg] 1 tab PO Q6H PRN #20 tablet 07/25/16 [Rx] hydrALAZINE [HydrALAZINE] 50 mg PO Q8HR tablet 07/25/16 [Rx] hydrOXYzine pamoate [HydrOXYzine Pamoate] 50 mg PO TID #30 cap 07/25/16 [Rx] Allergies/Adverse Reactions: Allergies amlodipine [From Norvasc] Allergy (Verified 04/20/16 07:44) See Comments swelling carvedilol [From Coreg] Adverse Reaction (Verified 02/14/15 08:26) Agitated gabapentin Adverse Reaction (Verified 02/09/16 19:23) Shakiness pregabalin [From Lyrica] Adverse Reaction (Verified 04/20/16 07:44) Confusion Sulfa (Sulfonamide Antibiotics) Adverse Reaction (Verified 03/19/16 08:37) Rash - Respiratory Orders Smoking Cessation: Smoking cessation has been advised. For more information, call the [place] Tobacco Quit Line at 9-489-JCKC-NOW. - Ancillary Orders May consult with Dentist, Building Appraiser, Marketing Financial Analyst PRN - Advance Directives Code Status: DNR-Arrest/Don't Intubate - Mobility Orders Ambulate (Per physical therapy) - Rehabiliation Orders Rehab Potential: Fair Rehab Orders: Evaluation for Physical Therapy, Evaluation for Occupational Therapy - Diet Orders Cardiac CERTIFICATION: I certify that the transfer of the above named patient to an Extended Care Facility is necessary for the continuing treatment of the diagnosis listed. The above information is true and accurate reflection of patient's current condition. Confidential - Redisclosure prohibited without a patient's written consent.
[2016-07-25 12:10] VITALS: BP 147/71
[2016-07-25] MEDS: *HR* HYDROcodone/Acet 5/325 mg TABLET PO PRN (13:08)
== END 2016-07-25 13:45 | DRG 66 ==
LOC: 2NNU 11:30 → EMEROO 11:30 → 2NNU 14:57
PROVIDERS: ADMIT Internal Medicine; ATTEND Internal Medicine

== ENCOUNTER 2018-04-01 17:18 | Observation (INO) ==
[2018-04-01] MEDS ORDERED: *HR* OxyCODONE Immed Rel 5 MG TABLET PO STA (17:29)
--- NOTE | 2018-04-01 18:01 | Emergency Department Note ---
Disposition Clinical Impression: Lower extremity weakness Qualifiers: Laterality: bilateral Qualified Code(s): R29.898 - Other symptoms and signs involving the musculoskeletal system Lower extremity pain Qualifiers: Laterality: bilateral Qualified Code(s): M79.604 - Pain in right leg Back pain Qualifiers: Back pain location: low back pain Chronicity: acute Back pain laterality: midline Sciatica presence: with sciatica Sciatica laterality: bilateral sciatica Qualified Code(s): M54.42 - Lumbago with sciatica, left side Lumbar canal stenosis Qualifiers: Neurogenic claudication status: unspecified Qualified Code(s): M48.061 - Spinal stenosis, lumbar region without neurogenic claudication Disposition: Admitted As Inpatient Condition: Fair Forms: ED Satisfaction Letter General Adult HPI - General Stated complaint: back pain Time Seen by Provider: 04/01/18 17:28 Source: patient Mode of arrival: EMS Limitations: no limitations Nursing Notes Reviewed: Yes Vital Signs Reviewed: Yes - History of Present Illness HPI Narrative: Patient is a 77-year-old male with past medical history including CVA, he is on Plavix, hypertension, hyperlipidemia, prior lumbar surgery, no hardware, presenting with chief complaint of progressively worsening bilateral lower extremity weakness and pain. 5 days ago, the patient states he was walking around his kitchen in his socks. He states the floor was slippery and he slipped. 1 foot was going in front of him and the other was going behind him and a split-like position. He states he could not stop himself and fell on the ground he states he hit his butt and lower back on the ground. He also hit his foot. Since then, he complains of constant lower extremity pain bilaterally. He is also complaining of progressively worsening weakness and states he feels like he cannot walk with his walker as well anymore. He complains of inner thigh numbness. He states the pain also goes into his lower back. Denies urinary or bowel inconctinence. He went to [facility]. They obtained imaging of his foot which was negative. CT lumbar spine shows spinal stenosis but no acute fractures however it did not mention anything about herniated disks or expanding masses patient is on Plavix. Concern for the progressive weakness, they sent the patient here for MRI. Pain Scale: 9 - Related Data Home Medications Medication Instructions Recorded Confirmed RX: Ergocalciferol (VITAMIN D2) 50,000 unit PO QWEEK 07/22/16 06/02/17 [Vitamin D2] RX: Lisinopril [Zestril] 20 mg PO DAILY 07/22/16 06/02/17 RX: Melatonin 5 mg PO HS PRN 07/22/16 06/02/17 RX: Rabeprazole Sodium [Aciphex] 20 mg PO DAILY 07/22/16 06/02/17 RX: cloNIDine HCl [Clonidine HCl] 0.2 mg PO TID 07/22/16 06/02/17 Alprazolam [Alprazolam Xr] 1 mg PO 04/01/18 Aspirin [Ecotrin] 325 mg PO 04/01/18 Furosemide [Lasix] 20 mg PO 04/01/18 RX: lamoTRIgine [Lamictal] 04/01/18 Simvastatin [Zocor] 20 mg PO HS 04/01/18 04/01/18 Previous Rx's Medication Instructions Recorded RX: Clopidogrel [Plavix] 75 mg PO DAILY #0 tablet 07/25/16 RX: HYDROcodone/Acet 5/325 mg 1 tab PO Q6H PRN #20 tablet 07/25/16 [[place] 5-325 mg] Allergies Allergy/AdvReac Type Severity Reaction Status Date / Time amlodipine [From Norvasc] Allergy See Verified 04/01/18 14:05 Comments carvedilol [From Coreg] AdvReac Agitated Verified 04/01/18 14:05 gabapentin AdvReac Shakiness Verified 04/01/18 14:05 pregabalin [From Lyrica] AdvReac Confusion Verified 04/01/18 14:05 Sulfa (Sulfonamide AdvReac Rash Verified 04/01/18 14:05 Antibiotics) All systems ED: reviewed and negative except as stated. Review of Systems: As Per HPI Constitutional: Denies: fever, chills Cardiovascular: Denies: chest pain, palpitations Respiratory: Denies: cough, dyspnea Gastrointestinal: Denies: abdominal pain, nausea, vomiting, diarrhea Genitourinary: Denies: dysuria Musculoskeletal: Reports: back pain, other (bilateral leg pain and weakness) Integumentary: Denies: abrasion Past Medical History - Past Medical History Attestation: Yes The following information was validated with the patient. Source: patient Medical history: Reports: CVA, hyperlipidemia, hypertension, renal disease Surgical history: Reports: orthopedic, other Psychiatric history: Reports: anxiety, depression - Social History Smoking Status: Never smoker Smokeless Tobacco Status: No Alcohol use: Reports: none Drug use: Reports: none Physical Exam - General Limitations: no limitations General appearance: alert, in distress (mild) - Head Head exam: atraumatic, normocephalic - Eye Eye exam: Present: normal appearance, PERRL, EOMI - ENT ENT exam: normal exam, normal oropharynx, mucous membranes moist - Neck Neck exam: Present: normal inspection, trachea midline. Absent: tenderness, meningismus - Chest Chest inspection: Present: normal inspection, symmetric chest wall rise - Respiratory Respiratory exam: Present: normal lung sounds bilaterally. Absent: respiratory distress, wheezes - Cardiovascular Cardiovascular exam: Present: regular rate, normal rhythm, normal heart sounds - Abdominal Exam Abdominal exam: Present: soft, Non-Tender. Absent: tenderness, distention, guarding, rebound, rigidity - Extremities Exam Extremities exam: Present: normal inspection, full ROM, normal capillary refill - Back Exam Back exam: Present: other (Midline spinal tenderness and paraspinal tenderness of the lower lumbar spine. Well-healed scar over L2-L5.) - Neurological Exam Neurological exam: Present: alert, oriented X3, CN II-XII intact, other (Decreased sensation bilateral inner thighs) - Expanded Neurological Exam Speech: Present: fluid speech Motor strength - LUE: 5/5 Motor strength - RUE: 5/5 Motor strength - LLE: 4/5 Motor strength - RLE: 4/5 Upper motor neuron exam: janette neglect: Absent bilaterally - Psychiatric Psychiatric exam: Present: normal affect, normal mood - Skin Skin exam: Present: warm, dry, intact Course Vital Signs Temperature 97.9 F 04/01/18 17:30 Pulse Rate 58 04/01/18 17:30 Respiratory Rate 16 04/01/18 17:30 Blood Pressure 184/92 04/01/18 17:30 O2 Sat by Pulse Oximetry 100 04/01/18 17:30 Temperature 97.9 F 04/01/18 17:30 Pulse Rate 63 04/01/18 21:23 Respiratory Rate 22 04/01/18 21:23 Blood Pressure 168/122 04/01/18 21:23 O2 Sat by Pulse Oximetry 99 04/01/18 21:23 Oxygen Delivery Oxygen Delivery Room Air Medical Decision Making - [facility] Narrative Medical decision making narrative: Patient history of previous lumbar surgery which he does not remember why and what the surgery was. He has significant tenderness of the L5 region. L>R weakness. He does have bilateral inner thigh numbness. He has weakness of bilateral lower extremity. No upper extremity weakness, slurred speech, facial droop, confusion. Suspect this is secondary to the fall. We will need to rule out herniated disc versus a mass. Doubt epidural abscess as the patient is af ebrile and has no history of IV drug use. He does hobble over to the bed and requires assistance when ambulating. Unable to bear weight secondary to pain on the left leg. We will obtain MRI spine without contrast to further evaluate. We will also give him roxicodone for pain. MRI imaging reviewed at 1900. There is multilevel degenerative disc disease throughout the lumbar spine with multilevel severe narrowing of the canal. L1- L2 has a paracentral and proximal foraminal broad-based protrusion with an annular tear and mild canal narrowing, L2-L3 has mild disc bulging with an annular tear and severe narrowing of the canal, L3-L4 shows diffuse disc bulging with annular tear, left foraminal protrusion with likely inferior migrated extruded disc material likely impinging on the descending left L4 nerve root with severe narrowing of the canal, L4-L5 shows diffuse disc bulging with small broad-based central protrusion with severe narrowing of the canal and left paracentral postop changes, mid L5 level there is synovial cyst at the midline along the posterior aspect of the canal with severe narrowing of the canal, and at L5-S1 there is diffuse disc bulging with annular tear, left paracentral and foraminal protrusion, endplate facet and ligament hypertrophic changes, severe foraminal narrowing. Patient notes improvement in pain. Dr. He, spinal surgery consulted at 19:45. Discussed with patient that we are waiting his recommendations. Patient and his would like to go home however they will wait until I discussed with Dr. He. Discussed with Dr. He at 2039. Recommending admission for observation secondary to weakness and he will evaluate the patient in the morning. Hospitalist has been consult for admission. Patient was given another Roxicodon e for his pain. Discussed with Hospitalist at 21:40. Per his recommendations will obtain CBC, CMP, creatinine kinase, urinalysis to evaluate for other causes of his bilateral lower show many weakness. We will obtain these labs prior to the patient being transferred to the floor. He is otherwise accepted for admission. - Medical Records Medical records reviewed: Yes I reviewed the patient's medical records. - Lab Data Result diagrams: 04/01/18 22:00 04/01/18 22:00 - Radiology Data Radiology results reviewed: Yes I reviewed the patient's radiology results. Lumbar Spine MRI 04/01/18 17:30 IMPRESSION: Multilevel degenerative disc disease throughout the lumbar spine as described. Multilevel severe narrowing of the canal is noted. See above for details of each level. D/ / Moses Wilson / Moses Wilson Interpreting Provider: Moses Wilson Attestation Statement - Attestation Attestation: Resident Attestation: I examined this patient and my medical decision making was reviewed with the Resident Physician. I agree with the documented findings, disposition and treatment plan as described except to the extent set forth below. We independently had [id number] contact with the patient. Patient presenting from outside emergency department for MRI for evaluation of low back pain and associated leg weakness with paresthesias to the inner thigh after the fall where he describes doing the splits. The patient had significant difficulty going from the wheelchair to the bed secondary to decrease strength, mobility, pain in the left leg. Patient does have 44 strength although significantly weak. Describes decreased sensation to the inner thigh but not involving the genital region. MRI ordered. Significant degenerative changes with central canal stenosis. The case was discussed with the resident and orthopedic spine. Patient admitted for further evaluation and management.
[2018-04-01] MEDS ORDERED: *HR* OxyCODONE Immed Rel 5 MG TABLET PO ONE (20:55)
[2018-04-01 22:29] LABS: Basophils # 0.1 K/mcL (0.0-0.2); Basophils % 0.6 %; Eosinophils # 0.2 K/mcL (0.0-0.6); Eosinophils % 2.6 %; Hematocrit 43.3 % (37.5-50.1); Hemoglobin 14.1 g/dL (12.9-16.9); Immature Granulocytes % 0.2 % (0-4); Lymphocytes # 3.4 K/mcL (0.6-4.6); Lymphocytes % 41.4 %; Mean Corpuscular HGB Conc 32.6 g/dL (31.6-35.5); Mean Corpuscular Hemoglobin 29.7 pg (28.0-33.3); Mean Corpuscular Volume 91.4 fL (83.0-100.0); Mean Platelet Volume 11.1 fL (9.4-12.4); Monocytes # 0.7 K/mcL (0.0-1.3); Neutrophils # 3.8 K/mcL (1.6-8.9); Platelet Count 116 K/mcL (140-400); Red Blood Count 4.74 M/mcL (4.19-5.50); Red Cell Distribution Width 12.5 % (11.5-14.5); Segmented Neutrophils % 47.2 %
[2018-04-01 22:49] LABS: Albumin 4.2 g/dL (3.5-5.7); Albumin/Globulin Ratio 1.5 (1.1-2.2); Bilirubin,Total 0.7 mg/dL (0.3-1.0); Calcium 9.4 mg/dL (8.6-10.3); Globulin 2.8 g/dL (2.4-3.5); Potassium 4.1 mEq/L (3.5-5.1)
[2018-04-01] MEDS ORDERED: Naloxone 0.4 MG/ML INJ IVP PRN (23:40)
[2018-04-01] MEDS ORDERED: OXYCODONE Oral CONC 10 MG/0.5 ML ORAL.SYG SL PRN (23:40)
[2018-04-01] MEDS ORDERED: 0.9 % Sodium Chloride 1,000 ML IVC SCH (23:45)
[2018-04-02] MEDS: OXYCODONE Oral CONC 10 MG/0.5 ML ORAL.SYG SL PRN ×4 (01:44→15:29)
[2018-04-02 02:35] LABS: Bilirubin,Urine Negative (Negative); Blood,Urine Negative (Negative); Clarity,Urine Clear (Clear); Color,Urine Yellow (Yellow); Glucose,Urine (UA) Normal (Normal); Ketones,Urine Negative (Negative); Leukocyte Esterase,Urine Trace (Negative); Nitrite,Urine Negative (Negative); PH,Urine 7.5 pH Units (5.0-8.0); Protein,Urine 30 mg/dL (Neg-Trace); Specific Gravity,Urine < 1.005 (1.010-1.025); Urobilinogen,Urine Normal (Normal)
--- NOTE | 2018-04-02 02:51 | Internal Med History&Physical ---
Date of Encounter: 04/02/18 Time of Encounter: 02:51 Internal Medicine - H&P: HPI Chief complaint: Lower extremity weakness History of present illness: Mr. Lange is a 77 year old male with a past medical history of stroke, hypertension, chronic kidney disease, coronary artery disease, hyperlipidemia and prior lumbar surgery who presents to the ED with a chief complaint of progressively worsening bilateral lower extremity weakness and pain. Patient states that 5 days ago he had slipped while ambulating at home with his socks resulting in one leg movement going forward with the ongoing back and the slitlike position followed by a fall onto his buttock and lower back. Since then he has been having constant lower extremity pain more predominantly on the left side involving the left hip left, left knee and left anterior foot. Since then the patient has had more difficulty with ambulation and noted increasing weakness in his left leg. Patient reports that since his stroke he has had left sided residual weakness which has affected his ambulation, though he has been able to get around without a cane. He is currently on Plavix. However now he feels that he cannot ambulate without grabbing onto some sort of a railing. Since then patient has been applying warm compresses and hot water to the area which initially seemed to improve his pain, but now is gotten progressively worse and is unable to bear weight secondary to the pain. Patient denies any numbness or tingling in his extremities. No reports of loss of bowel or bladder control. MRI of the spine was obtained which showed multilevel degenerative disc disease throughout the lumbar spine and multilevel severe narrowing of the canal. After discussion with the ED attending, there was low suspicion for cauda equina syndrome and the patient was brought up for admission. On my assessment patient was sitting up in bed in no acute distress. He did complain of pain in the left hip radiating up to his back, left knee and left foot. Sensation appeared to be intact. However, there was notable discoloration of the left foot appearing purple in color involving the digits. Dorsalis pedis pulse was faintly palpable with a good capillary refill. Patient states that this is new since the fall. Past Med Surg Social Fam HX - Past Medical History Medical history: CVA, hyperlipidemia, hypertension, renal disease Psychiatric history: anxiety, depression - Past Surgical History Surgical History: orthopedic, other Additional surgical history: ,kidney stone, neck and back sx - Social History Smoking Status: Never smoker Smokeless Tobacco Status: No Alcohol use: none Drug use: none - Family History Mother Family Member Ethnicity: Non- Living Status: Cause of : Kidney failure Father Family Member Ethnicity: Non- Living Status: Hx Family GI Disorders: Yes Brother Family Member Ethnicity: Non- Living Status: Hx Family Respiratory Disorders: Yes Sister Family Member Ethnicity: Non- Living Status: Internal Medicine - H&P: Meds Ergocalciferol (VITAMIN D2) [Vitamin D2] 50,000 unit PO QWEEK 07/22/16 [History] Lisinopril [Zestril] 10 mg PO DAILY 07/22/16 [History] Melatonin 5 mg PO HS PRN 07/22/16 [History] Rabeprazole Sodium [Aciphex] 20 mg PO DAILY 07/22/16 [History] cloNIDine HCl [Clonidine HCl] 0.1 mg PO TID 07/22/16 [History] Clopidogrel [Plavix] 75 mg PO DAILY #0 tablet 07/25/16 [Rx] HYDROcodone/Acet 5/325 mg [[place] 5-325 mg] 1 tab PO Q6H PRN #20 tablet 07/25/16 [Rx] Alprazolam [Alprazolam Xr] 1 mg PO HS 04/01/18 [History] Aspirin [Ecotrin] 325 mg PO 3XW 04/01/18 [History] Furosemide [Lasix] 20 mg PO DAILY 04/01/18 [History] Magnesium 325 mg PO HS 04/01/18 [History] Oxygen 2 l IH HS 04/01/18 [History] Sildenafil Citrate [Viagra] 50 mg PO . PRN 04/01/18 [History] Simvastatin [Zocor] 20 mg PO HS 04/01/18 [History] lamoTRIgine [Lamictal] 150 mg PO BID 04/01/18 [History] Allergy/AdvReac Type Severity Reaction Status Date / Time amlodipine [From Norvasc] Allergy See Verified 04/01/18 14:05 Comments carvedilol [From Coreg] AdvReac Agitated Verified 04/01/18 14:05 gabapentin AdvReac Shakiness Verified 04/01/18 14:05 pregabalin [From Lyrica] AdvReac Confusion Verified 04/01/18 14:05 Sulfa (Sulfonamide AdvReac Rash Verified 04/01/18 14:05 Antibiotics) all SSRI's AdvReac Confusion Uncoded 04/01/18 23:24 All Systems PM: A 10-system review of systems was performed and is negative for pertinent findings except as documented above in the HPI. - Constitutional Constitutional: no chills, no fever(s), no night sweats - EENT Eyes: no change in vision, no discharge, no pain, no photophobia Ears: no ear discharge, no ear pain, no tinnitus Nose, mouth and throat: no dysphagia, no nasal discharge, no neck pain, no sore throat - Cardiovascular Cardiovascular ROS IM: no chest pain, no diaphoresis, no dyspnea, no lightheadedness, no palpitations, no syncope - Respiratory Respiratory: no cough, no dyspnea, no wheezing, no excessive phlegm production - Gastrointestinal Gastrointestinal: no abdominal pain, no diarrhea, no hematemesis, no hematochezia, no melena, no nausea, no vomiting - Musculoskeletal Musculoskeletal ROS IM: no numbness, no tingling - Integumentary Integumentary IM: no rash, no unusual bruising - Neurological Neurological ROS: no confusion, no convulsions, no focal weakness, no numbness, no tingling, no tremor(s) - Hematologic/Lymphatic Hematologic/Lymphatic: no easy bruising - Constitutional Vitals: Temp Pulse Resp BP Pulse Ox 97.9 F 87 16 174/86 96 04/01/18 17:30 04/01/18 22:15 04/01/18 22:15 04/02/18 00:58 04/01/18 22:15 Exam: General: Alert and oriented 3 lying in bed in no acute distress Skin:Normal color, no rash, no lesions. HEENT:EOM, pupils equal, round and reactive. Cardiovascular:Normal S1 & S2, no rubs, murmurs or gallops. No JVD. Pulse regular. Lungs: Normal breath sounds, no wheezes or crackles. Abdomen:Soft, non-tender, no rigidity. Extremities:No deformity, no edema; tenderness to palpation of the dorsum of the left foot and ankle. Sensation intact. Muscle strength 3 out of 5 on the left. 4 out of 5 on the right. Left dorsalis pedis pulses weak but present palpation as compared to the right foot. Good capillary refill. Left foot from the ankle down cool to palpation as compared to the right foot. Neurological:Normal cognition and motor skills. Pulses:Carotid and radial pulses normal +2. Rest of the physical exam is non contributory Internal Med - H&P Results - Labs CBC & Chem 7: 04/02/18 06:18 04/02/18 06:18 Labs: Short CBC 04/01/18 Range/Units 22:00 WBC 8.1 (4.3-11.1) K/mcL Hgb 14.1 (12.9-16.9) g/dL Hct 43.3 (37.5-50.1) % Plt Count 116 L (140-400) K/mcL Neutrophils # 3.8 (1.6-8.9) K/mcL BMP 04/01/18 22:00 Sodium 138 Potassium 4.1 Chloride 103 Carbon Dioxide 27 BUN 17 Creatinine 1.48 H Glucose 105 Calcium 9.4 Liver Function 04/01/18 Range/Units 22:00 Total Bilirubin 0.7 (0.3-1.0) mg/dL AST 38 (13-39) Units/L ALT 26 (7-52) Units/L Alkaline Phosphatase 61 (34-104) Units/L Albumin 4.2 (3.5-5.7) g/dL - Impressions ITS Impressions Lumbar Spine MRI 04/01/18 17:30 IMPRESSION: Multilevel degenerative disc disease throughout the lumbar spine as described. Multilevel severe narrowing of the canal is noted. See above for details of each level. D/ / Moses Wilson / Moses Wilson Interpreting Provider: Moses Wilson - Assessment and plan (1) Back pain Current Visit: Yes Status: Acute Assessment and plan: Back Pain s/p fall. MRI of the lumbar spine shows multilevel degenerative disc disease throughout the lumbar spine: See report below. Patient was given oxycodone in the ED which appears to have improved the patient's pain. Case was discussed with Dr. He with orthopedics who will evaluate the patient in the morning. L1-L2: Mild disc bulging is noted diffusely. Right paracentral and proximal foraminal broad-based protrusion is noted. Annular tear is noted. [id number] right foraminal narrowing is noted. Facet and ligament hypertrophic changes are noted. Mild narrowing of the canal is noted L2-L3: Mild disc bulging is noted diffusely with annular tear. Endplate, facet and ligament hypertrophic changes are noted. Mild foraminal narrowing is noted, right greater than left. Moderate to severe narrowing of the canal is noted L3-L4: Diffuse disc bulging is noted with annular tear. Left foraminal protrusion is noted. Moderate left foraminal narrowing is noted. Below the level of the disc, there is intermediate T2 signal seen best on sagittal T2 image 11. This is likely inferiorly migrated extruded disc material. This extends into the left lateral recess likely impinging on the descending left L4 nerve root. Severe narrowing of the canal is noted. Bilateral facet and ligament hypertrophic changes are noted. L4-L5: Diffuse disc bulging is noted with a small broad-based central protrusion. Minimal inferiorly migrated extruded disc material is noted at the midline. Left foraminal disc protrusion is noted with moderate to severe narrowing of the left foramen. Severe narrowing of the canal is noted. Facet and ligament hypertrophic cHanges are noted. There are suggested left paracentral postoperative changes At the mid L5 level, there is a synovial cyst at the midline along the posterior aspect of the canal giving rise to severe narrowing of the canal. L5-S1: Diffuse disc bulging is noted with annular tear. Left paracentral and foraminal protrusion is noted. Moderate to severe left foraminal narrowing is noted. Moderate to severe right foraminal narrowing is noted. Endplate, facet and ligament hypertrophic changes are noted. Severe foraminal narrowing is noted. Heterogeneous signal is noted in the lateral recesses bilaterally. -Consult orthopedics placed -Pain control Qualifiers: Back pain location: low back pain Chronicity: acute Back pain laterality: midline Sciatica presence: with sciatica Sciatica laterality: bilateral sciatica Qualified Code(s): M54.42 - Lumbago with sciatica, left side; M54.41 - Lumbago with sciatica, right side (2) Lower extremity weakness Current Visit: Yes Status: Acute Assessment and plan: Bilateral lower extremity weakness left greater than right status post fall. Patient states that he has residual weakness on his left side after his CVA but states the weakness has gotten worse since the fall. Patient has good muscle strength on the right side however, assessment of his muscle strength in the left leg seems to be impaired by pain elicited with flexion and extension of the hip and knee. Sensation intact. Low suspicion for cauda equina syndrome. Orthopedics to follow in the morning. Qualifiers: Laterality: bilateral Qualified Code(s): R29.898 - Other symptoms and signs involving the musculoskeletal system (3) Discoloration of skin of foot Current Visit: Yes Status: Acute Assessment and plan: Patient has discoloration of the left foot with a purplish appearance of his digits. Patient reports that this is new since the fall. Leg is cool to palpation from the midshin downwards to the foot. No edema noted. Dorsalis pedis pulse is faintly palpable. Unable to palpate the posterior tibialis. Good capillary refill. Sensation intact. No history of peripheral vascular disease. Patient is currently on Plavix. -We will obtain CABRERA -Vascular consult. (4) Lumbar canal stenosis Current Visit: Yes Status: Acute Assessment and plan: See MRI report. -Appreciate orthopedic recommendations. Qualifiers: Neurogenic claudication status: unspecified Qualified Code(s): M48.061 - Spinal stenosis, lumbar region without neurogenic claudication (5) CAD (coronary artery disease) Current Visit: No Status: Chronic Assessment and plan: Stable. Continue with medical management with patient's home medications. Qualifiers: Coronary Disease-Associated Artery/Lesion type: unspecified vessel or lesion type [place] vs. transplanted heart: [place] heart Associated angina: without angina Qualified Code(s): I25.10 - Atherosclerotic heart disease of [place] coronary artery without angina pectoris (6) Chronic kidney disease, stage 3 Current Visit: No Status: Chronic Assessment and plan: Patient's creatinine appears to be at baseline. We will monitor. - Time Spent With Patient Total time spent is greater than 50% in coordination of care (as documented) at patient's floor/unit and/or counseling patient:
[2018-04-02 02:56] LABS: Bacteria,Urine None Seen per hpf (None-Few); Hyaline Casts,Urine None Seen per lpf (None-Few); RBC,Urine 0-3 per hpf (0-3); Squamous Epithelial Cell,Urine Few per lpf (None-Few); WBC,Urine 0-3 per hpf (0-3)
[2018-04-02] MEDS ORDERED: D5% in 0.45% NACL 1,000 ML IVC SCH (03:00)
[2018-04-02] MEDS: cloNIDine HCl 0.1 MG TABLET PO SCH ×3 (04:57→20:16)
[2018-04-02 07:19] LABS: Basophils % 0.4 %; Eosinophils # 0.1 K/mcL (0.0-0.6); Eosinophils % 1.2 %; Hematocrit 43.7 % (37.5-50.1); Hemoglobin 14.6 g/dL (12.9-16.9); Immature Granulocytes % 0.1 % (0-4); Lymphocytes # 1.9 K/mcL (0.6-4.6); Lymphocytes % 26.5 %; Mean Corpuscular HGB Conc 33.4 g/dL (31.6-35.5); Mean Corpuscular Hemoglobin 30.4 pg (28.0-33.3); Mean Corpuscular Volume 90.9 fL (83.0-100.0); Mean Platelet Volume 10.9 fL (9.4-12.4); Monocytes # 0.5 K/mcL (0.0-1.3); Neutrophils # 4.7 K/mcL (1.6-8.9); Platelet Count 120 K/mcL (140-400); Red Blood Count 4.81 M/mcL (4.19-5.50); Red Cell Distribution Width 12.8 % (11.5-14.5); Segmented Neutrophils % 64.8 %
[2018-04-02 07:36] LABS: Calcium 9.4 mg/dL (8.6-10.3)
[2018-04-02] MEDS: lamoTRIgine 100 MG TABLET PO SCH ×2 (08:57→20:16)
[2018-04-02] MEDS ORDERED: cloNIDine HCl 0.1 MG TABLET PO SCH (09:00)
--- NOTE | 2018-04-02 12:15 | Spinal Consult Note ---
Date of Encounter: 04/02/18 Time of Encounter: 12:13 Assessment and Plan (1) Spondylolisthesis at L4-L5 level Current Visit: Yes Status: Chronic On exam he is awake and alert and moderate distress secondary to back and left lower extremity radicular symptoms. Afebrile vital signs stable. His hips move symmetrically. He has no clonus. He has some weakness in the left quadriceps which is 4 minus on a motor scale. He has 4 out of 5 strength in dorsiflexion and plantar flexion of the left foot. The left foot is cool to touch in comparison to the contralateral extremity. He is otherwise neurovascularly intact with regard to his bilateral upper and lower extremities. He has a negative straight leg raise. MRI of the lumbar spine reveals multilevel degenerative changes. There is severe stenosis at L3-4, L4-5 and L5-S1. There is a degenerative thoracic or lumbar scoliosis apparent. There is a grade 1 spondylolisthesis at L4-5. His stenosis at L3-4 and distally is in part due to a disc extrusion with inferior migration at this level. Impression: 1) lumbar stenosis 2) lumbar radiculopathy 3) left leg weakness with gait impairment 4) spondylolisthesis L4-5 5) degenerative scoliosis an adult patient Plan: I had a long discussion with the patient regarding potential immediate surgery versus nonoperative treatments which would include physical therapy and gait and lower extremity strengthening, analgesics with consideration for neuroleptics and short course oral steroids, and outpatient consultation with pain management for lumbar epidural steroid injections. The patient would like to refrain from surgical intervention at this time. He understands the start in-house physical therapy and that he will likely need to be in a rehabilitation facility if his gait mechanics do not improve. We will set up follow-up appo intment with Dr. Zamora in pain management next week if discharged. Patient will follow-up in my office in 6 weeks to evaluate his clinical progress and understands he would be a good candidate for surgical decompression and fusion if he fails nonoperative treatment. (2) Lumbar radiculopathy Current Visit: Yes Status: Chronic (3) Degenerative scoliosis in adult patient Current Visit: Yes Status: Chronic History of Present Illness Chief complaint: Left leg weakness, lumbar radiculopathy HPI: Mr. Lange is a 77 year old male with a past medical history of stroke, hypertension, chronic kidney disease, coronary artery disease, hyperlipidemia and prior lumbar surgery who presents to the ED with a chief complaint of progressively worsening bilateral lower extremity weakness and pain. Patient states that 5 days ago he had slipped while ambulating at home with his socks resulting in one leg movement going forward with the ongoing back and the slitlike position followed by a fall onto his buttock and lower back. Since then he has been having constant lower extremity pain more predominantly on the left side involving the left hip left, left knee and left anterior foot. Since then the patient has had more difficulty with ambulation and noted increasing weakness in his left leg. Patient reports that since his stroke he has had left sided residual weakness which has affected his ambulation, though he has been able to get around without a cane. Secondary to his weakness and left lower extremity radicular symptoms we are asked to see regarding treatment options in light of severe stenosis found on MRI examination. He denies any bowel bladder difficulties. He has a history of lumbar epidural steroid injections with Dr. ted hull years ago which were helpful. He rates his pain is an 8 on a pain scale. Past Med Surg Social Fam HX - Past Medical History Medical history: CVA, hyperlipidemia, hypertension, renal disease Psychiatric history: anxiety, depression - Past Surgical History Surgical History: orthopedic, other Additional surgical history: ,kidney stone, neck and back sx - Social History Smoking Status: Never smoker Smokeless Tobacco Status: No Alcohol use: none Drug use: none - Family History Mother Family Member Ethnicity: Non- Living Status: Cause of : Kidney failure Father Family Member Ethnicity: Non- Living Status: Hx Family GI Disorders: Yes Brother Family Member Ethnicity: Non- Living Status: Hx Family Respiratory Disorders: Yes Sister Family Member Ethnicity: Non- Living Status: Medications and Allergies Ergocalciferol (VITAMIN D2) [Vitamin D2] 50,000 unit PO QWEEK 07/22/16 [History] Lisinopril [Zestril] 10 mg PO DAILY 07/22/16 [History] Melatonin 5 mg PO HS PRN 07/22/16 [History] Rabeprazole Sodium [Aciphex] 20 mg PO DAILY 07/22/16 [History] cloNIDine HCl [Clonidine HCl] 0.1 mg PO TID 07/22/16 [History] Clopidogrel [Plavix] 75 mg PO DAILY #0 tablet 07/25/16 [Rx] HYDROcodone/Acet 5/325 mg [[place] 5-325 mg] 1 tab PO Q6H PRN #20 tablet 07/25/16 [Rx] Alprazolam [Alprazolam Xr] 1 mg PO HS 04/01/18 [History] Aspirin [Ecotrin] 325 mg PO 3XW 04/01/18 [History] Furosemide [Lasix] 20 mg PO DAILY 04/01/18 [History] Magnesium 325 mg PO HS 04/01/18 [History] Oxygen 2 l IH HS 04/01/18 [History] Sildenafil Citrate [Viagra] 50 mg PO . PRN 04/01/18 [History] Simvastatin [Zocor] 20 mg PO HS 04/01/18 [History] lamoTRIgine [Lamictal] 150 mg PO BID 04/01/18 [History] Allergy/AdvReac Type Severity Reaction Status Date / Time amlodipine [From Norvasc] Allergy See Verified 04/01/18 14:05 Comments carvedilol [From Coreg] AdvReac Agitated Verified 04/01/18 14:05 gabapentin AdvReac Shakiness Verified 04/01/18 14:05 pregabalin [From Lyrica] AdvReac Confusion Verified 04/01/18 14:05 Sulfa (Sulfonamide AdvReac Rash Verified 04/01/18 14:05 Antibiotics) all SSRI's AdvReac Confusion Uncoded 04/01/18 23:24 Results - Labs Result Diagrams: 04/02/18 06:18 04/02/18 06:18 Labs: Abnormal lab results Plt Count 120 K/mcL (140-400) L 04/02/18 06:18 Carbon Dioxide 30 mEq/L (23-29) H 04/02/18 06:18 Creatinine 1.49 mg/dL (0.70-1.30) H 04/02/18 06:18 Est GFR ( Amer) 55 (> 60) L 04/02/18 06:18 Est GFR (Non-Af Amer) 46 (> 60) L 04/02/18 06:18 Glucose 153 mg/dL (70-105) H 04/02/18 06:18 POC Glucose 116 mg/dL (70-99) H 04/02/18 09:08 Ur Specific [place] < 1.005 (1.010-1.025) L 04/02/18 02:08 Urine Protein 30 mg/dL (Neg-Trace) H 04/02/18 02:08 Ur Leukocyte Esterase Trace (Negative) H 04/02/18 02:08 Ur Culture Indicated? YES (NO) A 04/02/18 02:08 H & H 04/01/18 04/02/18 Range/Units 22:00 06:18 Hgb 14.1 14.6 (12.9-16.9) g/dL Hct 43.3 43.7 (37.5-50.1) % All other labs normal. Consult Discharge Plan - Plan Referrals: Dio Wilkerson MD [Primary Care Provider] -
--- NOTE | 2018-04-02 12:48 | Event Note ---
Date of Encounter: 04/02/18 Time of Encounter: 11:30 Mr Lange was placed in observation earlier this AM due to intractable back pain with hx of spinal stenosis. He has been evaluated by Dr. Mendez and currently pursuing nonsurgical management. He is to be seen by PT/OT with plans for further reevaluation in the future. Currently he is comfortable at rest Plan: PT/OT Pain control Outpatient follow up with pain management and surgery Agree with other assessment and plan as per H&P
--- NOTE | 2018-04-02 15:03 | Vascular/Endovasc Consult Note ---
Date of Encounter: 04/02/18 Time of Encounter: 15:01 Assessment and Plan (1) Left leg pain Current Visit: Yes Status: Acute The patient is a 77-year-old white male who presents was left hip knee and ankle pain. The patient has spondylolisthesis as well as spinal stenosis. He has difficulties elevating his left leg. The patient has palpable femoral popliteal dorsalis pedis and posterior tibial pulses bilaterally. His feet are warm and well perfused. He has no evidence of arterial vascular insufficiency. There is no need for any further assessment at this stage. I will recommend an orthopedic consultation. - History of Present Illness Consult date: 04/02/18 Chief complaint: Left leg pain. History of present illness: Mr. Lange is a 77 year old male seen at the request of For peripheral vascular disease involving the left lower extremity. The patient is known to have spinal stenosis, spinal spondylolisthesis, compression of his left lower nerve root with weakness involving his left lower extremity. The patient sustained a fall after he slipped in his house. He has been complaining of left leg pain. The patient was found to have no pulses and we were asked to see him to render an opinion in regard to the circulatory status of his left lower extremity. The patient claims that the pain affect his left hip, left knee and left ankle. He denies any pain in his left foot. The patient denied any previous history of claudication. He had no previous surgery on his left lower extremity. He is morbidly obese. He suffers from swelling involving the lower extremities bilaterally. Past Med Surg Social Fam HX - Past Medical History Medical history: CVA, hyperlipidemia, hypertension, renal disease Psychiatric history: anxiety, depression - Past Surgical History Surgical History: orthopedic, other Additional surgical history: ,kidney stone, neck and back sx - Social History Smoking Status: Never smoker Smokeless Tobacco Status: No Alcohol use: none Drug use: none - Family History Mother Family Member Ethnicity: Non- Living Status: Cause of : Kidney failure Father Family Member Ethnicity: Non- Living Status: Hx Family GI Disorders: Yes Brother Family Member Ethnicity: Non- Living Status: Hx Family Respiratory Disorders: Yes Sister Family Member Ethnicity: Non- Living Status: Medications and Allergies Ergocalciferol (VITAMIN D2) [Vitamin D2] 50,000 unit PO QWEEK 07/22/16 [History] Lisinopril [Zestril] 10 mg PO DAILY 07/22/16 [History] Melatonin 5 mg PO HS PRN 07/22/16 [History] Rabeprazole Sodium [Aciphex] 20 mg PO DAILY 07/22/16 [History] cloNIDine HCl [Clonidine HCl] 0.1 mg PO TID 07/22/16 [History] Clopidogrel [Plavix] 75 mg PO DAILY #0 tablet 07/25/16 [Rx] HYDROcodone/Acet 5/325 mg [[place] 5-325 mg] 1 tab PO Q6H PRN #20 tablet 07/25/16 [Rx] Alprazolam [Alprazolam Xr] 1 mg PO HS 04/01/18 [History] Aspirin [Ecotrin] 325 mg PO 3XW 04/01/18 [History] Furosemide [Lasix] 20 mg PO DAILY 04/01/18 [History] Magnesium 325 mg PO HS 04/01/18 [History] Oxygen 2 l IH HS 04/01/18 [History] Sildenafil Citrate [Viagra] 50 mg PO . PRN 04/01/18 [History] Simvastatin [Zocor] 20 mg PO HS 04/01/18 [History] lamoTRIgine [Lamictal] 150 mg PO BID 04/01/18 [History] Allergy/AdvReac Type Severity Reaction Status Date / Time amlodipine [From Norvasc] Allergy See Verified 04/01/18 14:05 Comments carvedilol [From Coreg] AdvReac Agitated Verified 04/01/18 14:05 gabapentin AdvReac Shakiness Verified 04/01/18 14:05 pregabalin [From Lyrica] AdvReac Confusion Verified 04/01/18 14:05 Sulfa (Sulfonamide AdvReac Rash Verified 04/01/18 14:05 Antibiotics) all SSRI's AdvReac Confusion Uncoded 04/01/18 23:24 All Systems Review: The remainder of the systems were reviewed and are negative - Musculoskeletal Musculoskeletal: abnormal gait, back pain, muscle weakness, myalgias Exam Vital Signs, Last 4 Hours Temp Pulse Resp BP Pulse Ox 04/02/18 11:40 97.7 F 84 16 188/76 96 General: Present: No Apparent Distress HEENT: Present: Trachea midline, Pupils equal Cardiac: Present: Reg Rate and Rhythm, Normal S1 and S2, No Murmur Lungs: Present: Normal Breath Sounds, No Wheeze, Rales, Rhonchi Neuro: Present: Alert and responsive, No focal deficits noted Abdomen: Present: Soft, Non-tender Vascular: Present: Normal capillary refill, Pulse, normal, Color/Temperature (Erythema of bilateral great toes.) Musculoskeletal: Present: No Chest Wall Tenderness Consult Discharge Plan - Plan Additional Instructions: Followup with Dr. Mendez in 4-[address] Mendez, schedule patient with Dr. Zamora THIS WEEK. Referrals: Dio Wilkerson MD [Primary Care Provider] -
[2018-04-02] MEDS: Melatonin 3 MG TABLET PO PRN (20:16)
[2018-04-02] MEDS: Magnesium Oxide 400 MG TABLET PO SCH (20:16)
[2018-04-02] MEDS: ALPRAZolam 1 MG TABLET PO SCH (20:16)
[2018-04-02] MEDS ORDERED: NON-FORMULARY MEDICATION 1 EACH EACH (Oxygen [Oxygen] 2 L) IH SCH (21:00)
[2018-04-03 07:22] LABS: Hematocrit 45.1 % (37.5-50.1); Hemoglobin 14.9 g/dL (12.9-16.9); Mean Corpuscular Hemoglobin 30.2 pg (28.0-33.3); Mean Corpuscular Volume 91.3 fL (83.0-100.0); Platelet Count 117 K/mcL (140-400); Red Blood Count 4.94 M/mcL (4.19-5.50); Red Cell Distribution Width 12.8 % (11.5-14.5)
[2018-04-03] MEDS: OXYCODONE Oral CONC 10 MG/0.5 ML ORAL.SYG SL PRN ×3 (07:22→20:17)
[2018-04-03 07:43] LABS: Calcium 9.7 mg/dL (8.6-10.3); Magnesium 2.1 mg/dL (1.6-2.6); Potassium 4.3 mEq/L (3.5-5.1)
--- NOTE | 2018-04-03 07:59 | Internal Med Progress Note ---
Hospitalist Progress Note - Encounter Date of Encounter: 04/03/18 Time of Encounter: 08:45 - Subjective Interval History: Mr Lange is currently in observation for intractable back pain and spinal stenosis. He remains moderate to high risk due to potential for worsening clinical status. Mr Lange is up in chair. No fever or chills. Says pain meds help his back pain. Has been ambulating to bathroom. No CP or SOB. Awaiting PT/OT evals for decision on discharge plan. - Exam Vitals: Temp Pulse Resp BP Pulse Ox 97.3 F L 59 15 147/67 96 04/03/18 07:20 04/03/18 07:20 04/03/18 07:20 04/03/18 07:20 04/03/18 07:20 Exam: General: Alert and oriented. Comfortable at this time. Sitting up in chair. Skin: Normal color, no rash, H: Normocephalic. EENT: EOMI, pupils equal. Mucus membranes moist. No lesion. Cardiovascular: Normal S1 & S2, no murmurs or gallops. Pulse regular. Lungs: Normal breath sounds, no wheezes or crackles. Abdomen: Soft, non-tender. Normal bowel sounds. Extremities: No deformity, no edema, no joint swelling or clubbing. Neurological: Normal cognition and motor skills. Pulses: radial pulses normal +2. Rest of the physical exam is non contributory - Assessment and Plan (1) Lumbar canal stenosis Current Visit: Yes Status: Acute Assessment and Plan: Plan as above. Continue pain management. Medical management of condition. (2) Back pain Current Visit: Yes Status: Acute Assessment and Plan: Pt with spinal stenosis changes on MRI. Has been seen by spinal surgery. Awaiting PT/OT evaluations regarding discharge planning. Medical management at this time. Pain appears to be controlled at this time. (3) Lower extremity weakness Current Visit: Yes Status: Acute Assessment and Plan: Pt has had increased weakness. He is able to ambulate today. PT/OT to eval. (4) Chronic kidney disease, stage 3 Current Visit: No Status: Chronic Assessment and Plan: Creatinine has remained at baseline. (5) CAD (coronary artery disease) Current Visit: No Status: Chronic Assessment and Plan: Stable. Continuing home meds. (6) Hypertension Current Visit: No Status: Chronic Assessment and Plan: BP elevated during the night. Evaluate medication and adjust. - Time Spent with Patient Total time spent is greater than 50% in coordination of care (as documented) at patient's floor/unit and/or counseling patient: Internal Medicine: Result - Labs CBC & Chem 7: 04/03/18 07:06 04/03/18 07:06 Labs: Short CBC 04/03/18 Range/Units 07:06 WBC 6.5 (4.3-11.1) K/mcL Hgb 14.9 (12.9-16.9) g/dL Hct 45.1 (37.5-50.1) % Plt Count 117 L (140-400) K/mcL BMP 04/03/18 07:06 Sodium 139 Potassium 4.3 Chloride 106 Carbon Dioxide 26 BUN 20 Creatinine 1.43 H Glucose 123 H Calcium 9.7 - Impressions Impressions Lumbar Spine X-Ray 04/02/18 11:24 IMPRESSION: 1. Multilevel degenerative disc disease and facet joint arthropathy 2. No acute lumbar spine abnormality D/ / James Montelongo MD / James Montelongo MD Interpreting Provider: James Montelongo MD - VTE Documentation of Mechanical Device: Intermittent pneumatic compression device Consult Discharge Plan - Plan Additional Instructions: Followup with Dr. Mendez in 4-[address] Mendez, schedule patient with Dr. Zamora THIS WEEK. Referrals: Dio Wilkerson MD [Primary Care Provider] - (1) Lumbar canal stenosis Qualifiers: Neurogenic claudication status: with neurogenic claudication Qualified C ode(s): M48.062 - Spinal stenosis, lumbar region with neurogenic claudication (2) Back pain Qualifiers: Back pain location: low back pain Chronicity: acute Back pain laterality: midline Sciatica presence: with sciatica Sciatica laterality: bilateral sci atica Qualified Code(s): M54.42 - Lumbago with sciatica, left side; M54.41 - Lumbago with sciatica, right side (3) Lower extremity weakness Qualifiers: Laterality: bilateral Qualified Code(s): R29.898 - Other symptoms and signs involving the musculoskeletal system (5) CAD (coronary artery disease) Qualifiers: Coronary Disease-Associated Artery/Lesion type: [place] artery [place] vs. transplanted heart: [place] heart Associated angina: without angina Qualified Code(s): I25.10 - Atherosclerotic heart disease of [place] coronary artery without angina pectoris (6) Hypertension Qualifiers: Hypertension type: essential hypertension Qualified Code(s): I10 - Essential (primary) hypertension
[2018-04-03] MEDS: lamoTRIgine 100 MG TABLET PO SCH ×2 (08:37→20:13)
[2018-04-03] MEDS: cloNIDine HCl 0.1 MG TABLET PO SCH ×3 (08:37→20:14)
[2018-04-03] MEDS: Furosemide 20 MG TABLET PO SCH (08:38)
[2018-04-03] MEDS ORDERED: Aspirin Enteric Coated 81 MG Tablet PO SCH (17:15)
[2018-04-03] MEDS: Magnesium Oxide 400 MG TABLET PO SCH (20:13)
[2018-04-03] MEDS: Melatonin 3 MG TABLET PO PRN (20:13)
[2018-04-03] MEDS: ALPRAZolam 1 MG TABLET PO SCH (20:14)
[2018-04-04] MEDS: OXYCODONE Oral CONC 10 MG/0.5 ML ORAL.SYG SL PRN ×2 (00:31→09:20)
[2018-04-04 05:06] LABS: Hematocrit 42.8 % (37.5-50.1); Hemoglobin 14.1 g/dL (12.9-16.9); Mean Corpuscular HGB Conc 32.9 g/dL (31.6-35.5); Mean Corpuscular Hemoglobin 29.9 pg (28.0-33.3); Mean Corpuscular Volume 90.9 fL (83.0-100.0); Mean Platelet Volume 10.9 fL (9.4-12.4); Platelet Count 125 K/mcL (140-400); Red Blood Count 4.71 M/mcL (4.19-5.50); Red Cell Distribution Width 12.9 % (11.5-14.5)
[2018-04-04 05:23] LABS: Calcium 9.1 mg/dL (8.6-10.3); Magnesium 1.9 mg/dL (1.6-2.6); Potassium 4.1 mEq/L (3.5-5.1)
[2018-04-04] MEDS ORDERED: Aspirin Enteric Coated 325 MG Tablet PO SCH (09:00)
[2018-04-04] MEDS: cloNIDine HCl 0.1 MG TABLET PO SCH (09:07)
[2018-04-04] MEDS: Furosemide 20 MG TABLET PO SCH (09:08)
[2018-04-04] MEDS: lamoTRIgine 100 MG TABLET PO SCH (09:09)
--- NOTE | 2018-04-04 11:30 | Discharge Summary ---
- NOTES TO OUTPATIENT PROVIDER Notes to Outpatient Provider: Patient is to follow-up within this week for a repeat BMP to check his creatinine level. He has been instructed to hold his Lasix in the meantime. This might be resumed after the creatinine level improves. Date of Encounter: 04/04/18 Time of Encounter: 11:27 - Discharge Diagnosis (1) Back pain Priority: Primary Status: Acute Qualifiers: Back pain location: low back pain Chronicity: acute Back pain laterality: midline Sciatica presence: with sciatica Sciatica laterality: bilateral sciatica Qualified Code(s): M54.42 - Lumbago with sciatica, left side; M54.41 - Lumbago with sciatica, right side (2) Chronic kidney disease, stage 3 Priority: Secondary Status: Chronic (3) Hypertension Priority: Secondary Status: Chronic Qualifiers: Hypertension type: essential hypertension Qualified Code(s): I10 - Essential (primary) hypertension (4) CAD (coronary artery disease) Priority: Secondary Status: Chronic Qualifiers: Coronary Disease-Associated Artery/Lesion type: [place] artery [place] vs. transplanted heart: [place] heart Associated angina: without angina Qualified Code(s): I25.10 - Atherosclerotic heart disease of [place] coronary artery without angina pectoris (5) Lower extremity weakness Priority: Secondary Status: Acute Qualifiers: Laterality: bilateral Qualified Code(s): R29.898 - Other symptoms and signs involving the musculoskeletal system (6) Lumbar canal stenosis Priority: Secondary Status: Acute Qualifiers: Neurogenic claudication status: with neurogenic claudication Qualified Code(s): M48.062 - Spinal stenosis, lumbar region with neurogenic claudication Hospital course: Mr. Lange is a 77 year old male who presented with left leg weakness and lumbar radiculopathy. He also had progressively worsening bilateral lower extremity pain. He was found to have significant progressive degenerative lumbar disc disease including lumbar spinal stenosis, lumbar adenopathy, left leg weakness with gait impairment, spondylolisthesis L4-L5 level in addition to his degenerative scoliosis. He was seen by orthopedics and a nonoperative treatment plan has been advised initially. The suggestion to start a short dose of oral steroids which I will prescribe given a perception for. An outpatient consultation with pain management for lumbar epidural steroid injections will be considered. He is to follow up with Dr. Park and Dr. Zamora at discharge. The patient does have a history of CK D stage III and his creatinine was slightly worse since the time of his admission. I have asked him to hold his Lasix till he gets a creatinine check on this Wednesday which is April 08 and he can resume Lasix after the results of that blood test and discussed with his primary physician. Pain is well controlled based on outpatient therapy that he is currently on with Dr. Park. The patient does not want to take any new prescriptions at the time of this discharge besides prednisone needed he has been seen by PT OT and recommended outpatient therapy for which a prescription has been provided Discharge discussed with: patient - Time Spent with Patient Total time spent providing and/or coordinating discharge services: 45 minutes - Discharge Medications Prescriptions: PredniSONE [Deltasone] 40 mg PO DAILY #10 tablet Home Medications: Ergocalciferol (VITAMIN D2) [Vitamin D2] 50,000 unit PO SA 07/22/16 [History] Lisinopril [Zestril] 10 mg PO BID 07/22/16 [History] Melatonin 5 mg PO HS PRN 07/22/16 [History] Rabeprazole Sodium [Aciphex] 20 mg PO DAILY 07/22/16 [History] cloNIDine HCl [Clonidine HCl] 0.1 mg PO BID 07/22/16 [History] Clopidogrel [Plavix] 75 mg PO DAILY #0 tablet 07/25/16 [Rx] Alprazolam [Alprazolam Xr] 1 mg PO HS 04/01/18 [History] Magnesium Oxide [Magnesium] 400 mg PO HS 04/01/18 [History] Oxygen 2 l IH HS 04/01/18 [History] Sildenafil Citrate [Viagra] 50 mg PO . PRN 04/01/18 [History] Simvastatin [Zocor] 20 mg PO HS 04/01/18 [History] lamoTRIgine [Lamictal] 150 mg PO BID 04/01/18 [History] Aspirin [Lo-Dose Aspirin EC] 81 mg PO Q48H 04/03/18 [History] HYDROcodone/Acet 10/325 mg [[place] 10-325 mg] 0.5 tab PO Q3H PRN 04/03/18 [History] cloNIDine HCl [CloNIDine HCl] 0.1 mg PO 1200 PRN 04/03/18 [History] PredniSONE [Deltasone] 40 mg PO DAILY #10 tablet 04/04/18 [Rx] Allergies/Adverse Reactions: Allergy/AdvReac Type Severity Reaction Status Date / Time amlodipine [From Norvasc] Allergy See Verified 04/01/18 14:05 Comments carvedilol [From Coreg] AdvReac Agitated Verified 04/01/18 14:05 gabapentin AdvReac Shakiness Verified 04/01/18 14:05 pregabalin [From Lyrica] AdvReac Confusion Verified 04/01/18 14:05 Sulfa (Sulfonamide AdvReac Rash Verified 04/01/18 14:05 Antibiotics) all SSRI's AdvReac Confusion Uncoded 04/01/18 23:24 Date of admission: 04/01/18 22:14 Primary care physician: Dio Wilkerson MD Consults: 04/01/18 21:15 Consult to Orthopedic Surgery [CONS] Stat Consulting Provider: [facility] Reason for Consult: lumbar canal stenosis. d/u dr. Mendez Call Completed: Yes 04/02/18 04:35 Consult to Vascular Surgery [CONS] Routine Consulting Provider: Vascular Surgery [place] Reason for Consult: Discoloration of the left foot s/p fall. Weak DP pulse to palpation; cool to touch as compared to the right. Call Completed: No 04/02/18 11:33 Consult to Physical Therapy [CONS] Routine Comment: Evaluate, develop and implement POC Reason for Consult: Eval and treat - gait training, LE strengthening Does patient have active BEDREST order?: No Is patient medically & hemodynamically stable?: Yes Patient assessed for mobility or mobilized this visit?: No - Constitutional Vitals: Temp Pulse Resp BP Pulse Ox 97.7 F 62 19 135/72 94 04/04/18 07:10 04/04/18 07:10 04/04/18 07:10 04/04/18 07:10 04/04/18 07:10 Exam: GENERAL: Alert, moderate distress, cooperative EYES: PERRLA, EOMI EARS: External ears normal, canals clear OROPHARYNX: Lips, mucosa, and tongue normal. Teeth and gums normal. Oropharynx normal. NECK: No jugulovenous distention, No carotid bruits, Carotid pulse normal contour, Supple LUNGS: Lungs clear to auscultation, Good diaphragmatic excursion CARDIAC: Normal S1 and S2; no rubs, murmurs, or gallops ABDOMEN: Abdomen soft, non-tender, BS normal, No masses or organomegaly EXTREMITIES: Mild weakness in the left lower extremity as compared to the right. Straight leg raising test could not be performed appropriately given pain. NEURO: Gait not tested. Reflexes normal and symmetric. Sensation grossly intact, Cranial nerves II-XII intact PULSES: 2+ radial, 2+ carotid Rest of the exam is non contributory - Patient Status Disposition: Home, Self-Care Condition: Fair Functional capacity at discharge: uses cane/walker Overall status at discharge: patient is progressing back to baseline - Discharge Instructions Follow Up With: Dio Wilkerson MD [Primary Care Provider] - Forms: ED Satisfaction Letter Additional Instructions: Followup with Dr. Mendez in 4-[address] Mendez, schedule patient with Dr. Zamora THIS WEEK. Follow-up with Dr. Wilkerson within 1 week for a creatinine check - Diet and Activity Activity: increase activity as tolerated Diet: advance to your usual diet - VTE Documentation of Mechanical Device: Intermittent pneumatic compression device
[2018-04-04] MEDS ORDERED: cloNIDine HCl 0.1 MG TABLET PO PRN (12:00)
[2018-04-04 12:02] VITALS: BP 147/83
== END 2018-04-04 14:45 | disposition home or self-care (01) ==
LOC: EMEROOARM 17:18 → 3NENU 17:18 → SUATTDRO 22:14 → 3NENU 22:49
PROVIDERS: ADMIT Internal Medicine; ATTEND Internal Medicine

== ENCOUNTER 2020-06-11 16:56 | Observation (INO) ==
[2020-06-11] MEDS ORDERED: Isovue-370 500 ML BOTTLE IVP ONE (17:17)
[2020-06-11] MEDS ORDERED: 0.9 % Sodium Chloride 1,000 ML IVC ONE (17:22)
[2020-06-11] MEDS ORDERED: Ondansetron 4 MG/2 ML VIAL IVP ONE (17:22)
[2020-06-11 17:53] LABS: Basophils % 0.4 %
[2020-06-11 17:55] LABS: Eosinophils # 0.1 K/mcL (0.0-0.6); Hematocrit 41.8 % (37.5-50.1); Hemoglobin 13.4 g/dL (12.9-16.9); Immature Granulocytes % 0.1 % (0-4); Immature Platelets 5.6 % (1.1-6.1); Lymphocytes # 2.8 K/mcL (0.6-4.6); Lymphocytes % 40.4 %; Mean Corpuscular HGB Conc 32.1 g/dL (31.6-35.5); Mean Corpuscular Hemoglobin 30.8 pg (28.0-33.3); Mean Corpuscular Volume 96.1 fL (83.0-100.0); Monocytes # 0.4 K/mcL (0.0-1.3); Monocytes % 6.4 %; Neutrophils # 3.5 K/mcL (1.6-8.9); Platelet Count 97 K/mcL (140-400); Red Blood Count 4.35 M/mcL (4.19-5.50); Red Cell Distribution Width 12.8 % (11.5-14.5); Segmented Neutrophils % 50.7 %; White Blood Count 6.9 K/mcL (4.3-11.1)
[2020-06-11 18:00] LABS: INR 1.1; Prothrombin Time 12.4 Seconds (9.4-12.1)
[2020-06-11 18:03] LABS: Activated Partial Thrombo Time 28.3 Seconds (26.0-36.0)
[2020-06-11 18:14] LABS: Alanine Aminotransferase 10 Units/L (7-52); Albumin 3.9 g/dL (3.5-5.7); Albumin/Globulin Ratio 1.5 (1.1-2.2); Alkaline Phosphatase 86 Units/L (34-104); Aspartate Amino Transferase 13 Units/L (13-39); BUN/Creatinine Ratio 16 (6-26); Bilirubin,Direct 0.2 mg/dL (0.0-0.2); Bilirubin,Indirect 0.3 mg/dL (0.0-1.0); Bilirubin,Total 0.5 mg/dL (0.3-1.0); Blood Urea Nitrogen 25 mg/dL (8-23); Calcium 9.5 mg/dL (8.6-10.3); Carbon Dioxide 28 mEq/L (23-29); Chloride 109 mEq/L (98-107); Ethanol < 10 mg/dL (Less than 10); Globulin 2.6 g/dL (2.4-3.5); Glucose 113 mg/dL (70-105); Osmolality,Calculated 305 (280-300); Potassium 3.7 mEq/L (3.5-5.1); Sodium 145 mEq/L (136-145); Total Protein 6.5 g/dL (6.4-8.9); Troponin I < 0.03 ng/mL (< 0.04); eGFR For African Americans 52 (> 60); eGFR For Non-African Americans 43 (> 60)
[2020-06-11 18:33] LABS: Bacteria,Urine Few per hpf (None-Few); Bilirubin,Urine Negative (Negative); Blood,Urine Trace (Negative); Calcium Oxalate Crystals,Urine Present; Clarity,Urine Turbid (Clear); Color,Urine Yellow (Yellow); Glucose,Urine (UA) Normal (Normal); Hyaline Casts,Urine Moderate per lpf (None Seen); Ketones,Urine Negative (Negative); Leukocyte Esterase,Urine Large (Negative); Mucus,Urine Few per lpf (None-Few); Nitrite,Urine Negative (Negative); Protein,Urine 50 mg/dL (Neg-Trace); RBC,Urine 15-30 per hpf (0-3); Specific Gravity,Urine 1.025 (1.010-1.025); Squamous Epithelial Cell,Urine Few per hpf (None-Few); WBC,Urine 50-100 per hpf (0-3)
[2020-06-11 19:00] LABS: Amphetamine Screen,Urine Negative ng/mL (Cutoff=1000); Barbiturate Screen,Urine Negative ng/mL (Cutoff=200); Benzodiazepines Screen,Urine Positive ng/mL (Cutoff=200); Cannabinoid Screen,Urine Positive ng/mL (Cutoff = 50); Cocaine Screen,Urine Negative ng/mL (Cutoff= 300); Opiate Screen,Urine Positive ng/mL (Cutoff=300); Phencyclidine Screen,Urine Negative ng/mL (Cutoff=25)
[2020-06-11] MEDS ORDERED: cefTRIAXone 1,000 MG in Water for inj. (sterile) 10 ML IVP ONE (19:24)
[2020-06-11] MEDS ORDERED: Vancomycin 1,250 MG/262.5 ML IV.SOLN IVPB ONE (19:24)
[2020-06-11] MEDS ORDERED: *HR* HYDROcodone/Acet 5/325 mg TABLET PO ONE (19:39)
[2020-06-11] MEDS ORDERED: Naloxone 0.4 MG/ML INJ IVP PRN (21:59)
[2020-06-11] MEDS ORDERED: Ondansetron 4 MG/2 ML VIAL IVP PRN (21:59)
[2020-06-11] MEDS ORDERED: Melatonin 3 MG TABLET PO PRN (21:59)
[2020-06-11] MEDS ORDERED: cloNIDine HCL 0.1 MG TABLET PO SCH (22:00)
[2020-06-11] MEDS ORDERED: Acetaminophen 325 MG TABLET PO PRN (22:08)
[2020-06-11] MEDS ORDERED: Perflutren Lipid Microsphere 1.3 ML in 0.9 % Sodium Chloride 8.7 ML IVP PRN (22:41)
[2020-06-11] MEDS: *HR* LORazepam 0.5 MG TABLET PO SCH (22:53)
[2020-06-11] MEDS: Piperacillin/Tazobactam 3.375 GM in 0.9 % Sodium Chloride Mini Bag 100 ML IVPB SCH (22:54)
[2020-06-11] MEDS: hydrALAZINE 25 MG TABLET PO SCH (22:54)
[2020-06-11] MEDS: ALPRAZolam 0.5 MG TABLET PO SCH (22:54)
[2020-06-11] MEDS: lisinopriL 20 MG TABLET PO SCH (22:59)
[2020-06-12 00:13] LABS: Mean Corpuscular Hemoglobin 30.6 pg (28.0-33.3); Red Cell Distribution Width 12.7 % (11.5-14.5)
[2020-06-12 00:15] LABS: Basophils % 0.3 %; Eosinophils # 0.1 K/mcL (0.0-0.6); Eosinophils % 0.6 %; Hematocrit 39.4 % (37.5-50.1); Hemoglobin 12.6 g/dL (12.9-16.9); Immature Granulocytes % 0.1 % (0-4); Lymphocytes # 2.2 K/mcL (0.6-4.6); Lymphocytes % 28.3 %; Mean Corpuscular Volume 95.6 fL (83.0-100.0); Mean Platelet Volume 11.1 fL (9.4-12.4); Monocytes # 0.4 K/mcL (0.0-1.3); Monocytes % 4.7 %; Red Blood Count 4.12 M/mcL (4.19-5.50); White Blood Count 7.8 K/mcL (4.3-11.1)
[2020-06-12 00:16] LABS: Neutrophils # 5.2 K/mcL (1.6-8.9); Platelet Count 98 K/mcL (140-400)
[2020-06-12 00:35] LABS: BUN/Creatinine Ratio 16 (6-26); Blood Urea Nitrogen 22 mg/dL (8-23); Calcium 8.7 mg/dL (8.6-10.3); Carbon Dioxide 27 mEq/L (23-29); Chloride 110 mEq/L (98-107); Glucose 129 mg/dL (70-105); Osmolality,Calculated 305 (280-300); Sodium 145 mEq/L (136-145); eGFR For African Americans > 60 (> 60); eGFR For Non-African Americans 50 (> 60)
[2020-06-12] MEDS: hydrALAZINE 25 MG TABLET PO SCH ×3 (07:52→16:49)
[2020-06-12] MEDS: lisinopriL 20 MG TABLET PO SCH ×2 (07:52→20:42)
[2020-06-12] MEDS: *HR* LORazepam 0.5 MG TABLET PO SCH ×3 (07:52→20:42)
[2020-06-12] MEDS: Piperacillin/Tazobactam 3.375 GM in 0.9 % Sodium Chloride Mini Bag 100 ML IVPB SCH ×2 (07:52→16:49)
[2020-06-12] MEDS: *HR* HYDROcodone/Acet 5/325 mg TABLET PO PRN (15:08)
[2020-06-12] MEDS ORDERED: D5% in Water 1,000 ML IVC PRN (18:06)
[2020-06-12] MEDS ORDERED: *HR* Dextrose 50 % in Water (Vial) 50 ML VIAL IVP PRN (18:06)
[2020-06-12] MEDS ORDERED: Dextrose Gel 15 GM/37.5 ML TUBE PO PRN ×2 (18:06)
[2020-06-12] MEDS: polyethylene glycoL 3350 17 GM POWD.PACK PO SCH (18:35)
[2020-06-12] MEDS: cloNIDine HCL 0.1 MG TABLET PO SCH (20:42)
[2020-06-12] MEDS: ALPRAZolam 0.5 MG TABLET PO SCH (20:42)
[2020-06-12] MEDS ORDERED: Insulin LISPRO 300 UNITS/3 ML VIAL SUBQ SCH (21:00)
[2020-06-13] MEDS: Piperacillin/Tazobactam 3.375 GM in 0.9 % Sodium Chloride Mini Bag 100 ML IVPB SCH ×3 (00:07→17:32)
[2020-06-13] MEDS: *HR* HYDROcodone/Acet 5/325 mg TABLET PO PRN ×2 (00:11→05:02)
[2020-06-13 06:28] LABS: Immature Granulocytes % 0.1 % (0-4)
[2020-06-13 06:30] LABS: Basophils # 0.1 K/mcL (0.0-0.2); Basophils % 0.6 %; Eosinophils # 0.2 K/mcL (0.0-0.6); Eosinophils % 2.4 %; Hematocrit 38.2 % (37.5-50.1); Hemoglobin 12.6 g/dL (12.9-16.9); Immature Platelets 5.8 % (1.1-6.1); Lymphocytes % 38.4 %; Mean Corpuscular Hemoglobin 30.8 pg (28.0-33.3); Mean Corpuscular Volume 93.4 fL (83.0-100.0); Mean Platelet Volume 11.1 fL (9.4-12.4); Monocytes # 0.5 K/mcL (0.0-1.3); Monocytes % 6.1 %; Neutrophils # 4.1 K/mcL (1.6-8.9); Red Blood Count 4.09 M/mcL (4.19-5.50); Red Cell Distribution Width 12.7 % (11.5-14.5); Segmented Neutrophils % 52.4 %; White Blood Count 7.8 K/mcL (4.3-11.1)
[2020-06-13 06:33] LABS: Platelet Count 98 K/mcL (140-400)
[2020-06-13 06:47] LABS: BUN/Creatinine Ratio 14 (6-26); Blood Urea Nitrogen 19 mg/dL (8-23); Calcium 9.2 mg/dL (8.6-10.3); Carbon Dioxide 28 mEq/L (23-29); Chloride 107 mEq/L (98-107); Glucose 103 mg/dL (70-105); Osmolality,Calculated 301 (280-300); Potassium 3.5 mEq/L (3.5-5.1); Sodium 144 mEq/L (136-145); eGFR For African Americans > 60 (> 60); eGFR For Non-African Americans 51 (> 60)
[2020-06-13] MEDS ORDERED: *HR* Metoprolol 5 MG/5 ML VIAL IVP ONE (06:53)
[2020-06-13] MEDS: Insulin LISPRO 300 UNITS/3 ML VIAL SUBQ SCH ×3 (08:11→17:32)
[2020-06-13] MEDS: polyethylene glycoL 3350 17 GM POWD.PACK PO SCH (08:14)
[2020-06-13] MEDS: hydrALAZINE 25 MG TABLET PO SCH ×3 (08:15→17:32)
[2020-06-13] MEDS: cloNIDine HCL 0.1 MG TABLET PO SCH ×2 (08:15→14:33)
[2020-06-13] MEDS: lisinopriL 20 MG TABLET PO SCH (08:15)
[2020-06-13] MEDS: *HR* LORazepam 0.5 MG TABLET PO SCH ×2 (08:15→14:33)
[2020-06-13] MEDS ORDERED: *HR* HYDROcodone/Acet 10/325 mg TABLET PO PRN (11:10)
[2020-06-13 15:33] VITALS: BP 180/70
== END 2020-06-13 18:21 | disposition hospice, home (50) ==
LOC: EMEROOARM 16:56 → 3ANU 16:56
PROVIDERS: ADMIT Internal Medicine; ATTEND Internal Medicine

== ENCOUNTER 2020-07-06 00:15 | Inpatient (IN) ==
[2020-07-06] MEDS ORDERED: Isovue-370 500 ML BOTTLE IVP ONE (02:21)
[2020-07-06 02:43] LABS: Basophils % 0.3 %; Lymphocytes % 10.2 %
[2020-07-06 02:45] LABS: Eosinophils # 0.2 K/mcL (0.0-0.6); Eosinophils % 2.3 %; Hematocrit 38.8 % (37.5-50.1); Hemoglobin 12.6 g/dL (12.9-16.9); Immature Granulocytes % 0.3 % (0-4); Immature Platelets 6.2 % (1.1-6.1); Lymphocytes # 1.1 K/mcL (0.6-4.6); Mean Corpuscular HGB Conc 32.5 g/dL (31.6-35.5); Mean Corpuscular Hemoglobin 30.4 pg (28.0-33.3); Mean Corpuscular Volume 93.7 fL (83.0-100.0); Monocytes # 0.5 K/mcL (0.0-1.3); Monocytes % 4.8 %; Neutrophils # 8.5 K/mcL (1.6-8.9); Red Blood Count 4.14 M/mcL (4.19-5.50); Red Cell Distribution Width 12.7 % (11.5-14.5); Segmented Neutrophils % 82.1 %; White Blood Count 10.4 K/mcL (4.3-11.1)
[2020-07-06 03:02] LABS: Alanine Aminotransferase 8 Units/L (7-52); Albumin 3.4 g/dL (3.5-5.7); Albumin/Globulin Ratio 1.4 (1.1-2.2); Alkaline Phosphatase 92 Units/L (34-104); Aspartate Amino Transferase 14 Units/L (13-39); BUN/Creatinine Ratio 16 (6-26); Bilirubin,Direct 0.3 mg/dL (0.0-0.2); Bilirubin,Indirect 0.3 mg/dL (0.0-1.0); Bilirubin,Total 0.6 mg/dL (0.3-1.0); Blood Urea Nitrogen 22 mg/dL (8-23); Calcium 8.8 mg/dL (8.6-10.3); Carbon Dioxide 25 mEq/L (23-29); Chloride 109 mEq/L (98-107); Globulin 2.4 g/dL (2.4-3.5); Glucose 136 mg/dL (70-105); Lipase 17 Units/L (11-82); Magnesium 1.5 mg/dL (1.6-2.6); Osmolality,Calculated 303 (280-300); Potassium 3.6 mEq/L (3.5-5.1); Sodium 144 mEq/L (136-145); Total Protein 5.8 g/dL (6.4-8.9); eGFR For African Americans > 60 (> 60); eGFR For Non-African Americans 50 (> 60)
[2020-07-06 03:27] LABS: Platelet Count 76 K/mcL (140-400)
[2020-07-06 04:44] LABS: Bacteria,Urine Moderate per hpf (None-Few); RBC,Urine 0-3 per hpf (0-3); Squamous Epithelial Cell,Urine Moderate per hpf (None-Few); Transitional Epi Cells,Urine Few per hpf (None-Few); WBC,Urine TNTC per hpf (0-3)
[2020-07-06] MEDS ORDERED: 0.9 % Sodium Chloride 1,000 ML IV ONE (06:01)
[2020-07-06] MEDS ORDERED: cefTRIAXone 1,000 MG in 0.9 % Sodium Chloride Mini Bag 100 ML IVPB ONE (06:16)
[2020-07-06] MEDS ORDERED: Naloxone 0.4 MG/ML INJ IVP PRN (07:21)
[2020-07-06] MEDS ORDERED: Acetaminophen 325 MG TABLET PO PRN (07:21)
[2020-07-06] MEDS ORDERED: Ondansetron 4 MG/2 ML VIAL IVP PRN (07:21)
[2020-07-06] MEDS ORDERED: Vancomycin 1,250 MG/262.5 ML IV.SOLN IVPB ONE (09:30)
[2020-07-06] MEDS ORDERED: Isovue-250 100 ML INFUS..BTL ONE (10:53)
[2020-07-06] MEDS ORDERED: 0.9 % Sodium Chloride 1,000 ML ONE (10:53)
[2020-07-06] MEDS ORDERED: Heparin 1,000 UNITS/500 mL 500 ML ONE (10:53)
[2020-07-06] MEDS: Ringers Solution, Lactated 1,000 ML IVC SCH (15:42)
[2020-07-06] MEDS: *HR* Heparin 5,000 UNIT/ML VIAL SQ SCH (16:17)
[2020-07-06] MEDS ORDERED: *HR* HYDROmorphone (PF) 1 MG/ML SYRINGE IVP STA (19:35)
[2020-07-06] MEDS: *HR* LORazepam 0.5 MG TABLET PO SCH (19:51)
[2020-07-06] MEDS: lisinopriL 20 MG TABLET PO SCH (19:51)
[2020-07-06] MEDS: hydrALAZINE 25 MG TABLET PO SCH (19:51)
[2020-07-06] MEDS: ALPRAZolam 1 MG TABLET PO SCH (19:51)
[2020-07-06] MEDS: cloNIDine HCL 0.1 MG TABLET PO SCH (19:52)
[2020-07-07] MEDS: *HR* HYDROcodone/Acet 10/325 mg TABLET PO PRN ×4 (00:45→20:53)
[2020-07-07 01:15] LABS: Hematocrit 37.8 % (37.5-50.1); Hemoglobin 12.3 g/dL (12.9-16.9); Mean Corpuscular HGB Conc 32.5 g/dL (31.6-35.5); Mean Corpuscular Hemoglobin 30.1 pg (28.0-33.3); Mean Corpuscular Volume 92.6 fL (83.0-100.0); Mean Platelet Volume 11.5 fL (9.4-12.4); Platelet Count 71 K/mcL (140-400); Red Blood Count 4.08 M/mcL (4.19-5.50); Red Cell Distribution Width 12.9 % (11.5-14.5)
[2020-07-07 01:34] LABS: BUN/Creatinine Ratio 17 (6-26); Blood Urea Nitrogen 22 mg/dL (8-23); Calcium 8.5 mg/dL (8.6-10.3); Carbon Dioxide 26 mEq/L (23-29); Chloride 108 mEq/L (98-107); Glucose 119 mg/dL (70-105); Magnesium 1.5 mg/dL (1.6-2.6); Osmolality,Calculated 296 (280-300); Potassium 4.3 mEq/L (3.5-5.1); Sodium 141 mEq/L (136-145); eGFR For African Americans > 60 (> 60); eGFR For Non-African Americans 54 (> 60)
[2020-07-07] MEDS ORDERED: Vancomycin 1,250 MG/262.5 ML IV.SOLN IVPB SCH (06:00)
[2020-07-07] MEDS: *HR* Heparin 5,000 UNIT/ML VIAL SQ SCH ×2 (06:33→17:35)
[2020-07-07] MEDS: Ringers Solution, Lactated 1,000 ML IVC SCH (06:44)
[2020-07-07] MEDS: cloNIDine HCL 0.1 MG TABLET PO SCH ×3 (09:08→20:54)
[2020-07-07] MEDS: hydrALAZINE 25 MG TABLET PO SCH ×3 (09:08→20:54)
[2020-07-07] MEDS: lisinopriL 20 MG TABLET PO SCH ×2 (09:08→20:54)
[2020-07-07] MEDS: cefTRIAXone 1,000 MG in Water for inj. (sterile) 10 ML IVP SCH (09:09)
[2020-07-07] MEDS: *HR* LORazepam 0.5 MG TABLET PO SCH (20:54)
[2020-07-07] MEDS: ALPRAZolam 1 MG TABLET PO SCH (20:54)
[2020-07-08 05:08] LABS: Red Blood Count 3.85 M/mcL (4.19-5.50)
[2020-07-08 05:10] LABS: Hematocrit 36.1 % (37.5-50.1); Hemoglobin 11.9 g/dL (12.9-16.9); Immature Platelets 6.6 % (1.1-6.1); Mean Corpuscular Hemoglobin 30.9 pg (28.0-33.3); Mean Corpuscular Volume 93.8 fL (83.0-100.0); Mean Platelet Volume 11.7 fL (9.4-12.4); Red Cell Distribution Width 13.1 % (11.5-14.5); White Blood Count 8.2 K/mcL (4.3-11.1)
[2020-07-08 05:30] LABS: Calcium 8.6 mg/dL (8.6-10.3); Potassium 3.8 mEq/L (3.5-5.1)
[2020-07-08] MEDS: cefTRIAXone 1,000 MG in Water for inj. (sterile) 10 ML IVP SCH (06:11)
[2020-07-08] MEDS: *HR* Heparin 5,000 UNIT/ML VIAL SQ SCH ×2 (06:11→16:23)
[2020-07-08] MEDS: *HR* HYDROcodone/Acet 10/325 mg TABLET PO PRN ×3 (06:12→16:23)
[2020-07-08] MEDS ORDERED: Ertapenem 1,000 MG in 0.9 % Sodium Chloride Mini Bag 100 ML IVPB SCH (09:00)
[2020-07-08] MEDS: cloNIDine HCL 0.1 MG TABLET PO SCH ×2 (09:56→15:40)
[2020-07-08] MEDS: hydrALAZINE 25 MG TABLET PO SCH ×2 (09:56→15:40)
[2020-07-08] MEDS: lisinopriL 20 MG TABLET PO SCH (09:56)
[2020-07-08 12:01] VITALS: BP 119/50
== END 2020-07-08 17:59 | disposition hospice, home (50) | DRG 299 ==
LOC: EMEROOARM 00:15 → 2NENU 00:15 → SUATTDRO 13:03
PROVIDERS: ADMIT Internal Medicine; ATTEND Family Medicine